=== PATIENT | male | born 1955 | race Caucasian/White ===

== ENCOUNTER 2021-01-10 10:27 | Inpatient (IN) | payer BC, MEDICARE ==
--- NOTE | 2021-01-10 11:14 | ED ---
General Adult HPI - General Chief complaint: Fever Stated complaint: Fever Time Seen by Provider: 01/10/21 10:44 Source: patient, RN/MD, RN notes reviewed Mode of arrival: ambulatory Limitations: no limitations - History of Present Illness Initial comments: Patient is a pleasant 65-year-old male presenting to the emergency Department with complaints of fever yesterday. Patient states he has not been feeling well. Patient has had some postnasal drip and cough. Patient has had some occasional productive sputum, somewhat dark. Patient did have fever of 102 yesterday. Patient was supposed to have angiogram done however they would not do it secondary to fever. No dyspnea. No abdominal pain. No dysuria. Patient recently stopped smoking 3 days ago. Patient did see his doctor today and was advised to come to emergency department for evaluation for fever. Patient has been a little bit lightheaded. - Related Data Home Medications Medication Instructions Recorded Confirmed ALPRAZolam [Xanax] 1 mg PO HS 02/11/15 01/10/21 Aspirin EC [Ecotrin Low Dose] 81 mg PO DAILY 01/10/21 01/10/21 Atorvastatin [Lipitor] 10 mg PO HS 01/10/21 01/10/21 Clopidogrel [Plavix] 75 mg PO DAILY 01/10/21 01/10/21 FLUoxetine HCL [PROzac] 20 mg PO DAILY 01/10/21 01/10/21 Ibuprofen [Motrin] 800 mg PO Q8H PRN 01/10/21 01/10/21 Multivit-Min/FA/Lycopen/Lutein 1 tab PO DAILY 01/10/21 01/10/21 [Centrum Silver Tablet] Pregabalin [Lyrica] 150 mg PO BID 01/10/21 01/10/21 Varenicline [Chantix Continuing 1 mg PO BID 01/10/21 01/10/21 Pack] oxyCODONE-APAP 10-325MG [Percocet 1 tab PO QID 01/10/21 01/10/21 10-325 mg] Allergies Allergy/AdvReac Type Severity Reaction Status Date / Time gabapentin Allergy Swelling Verified 01/10/21 11:33 Review of Systems ROS Statement: Those systems with pertinent positive or pertinent negative responses have been documented in the HPI. ROS Other: All systems not noted in ROS Statement are negative. Constitutional: Reports: as per HPI, fever Eyes: Denies: eye pain ENT: Reports: congestion. Denies: ear pain Respiratory: Reports: cough. Denies: dyspnea Cardiovascular: Denies: chest pain Endocrine: Denies: fatigue Gastrointestinal: Denies: abdominal pain Genitourinary: Denies: dysuria Musculoskeletal: Denies: back pain Skin: Denies: rash Neurological: Denies: headache, weakness, confusion, abnormal gait, vertigo Past Medical History Past Medical History: Sleep Apnea/CPAP/BIPAP Additional Past Medical History / Comment(s): NO CPAP/BIPAP. CHRONIC NECK/BACK PAIN. History of Any Multi-Drug Resistant Organisms: None Reported Past Surgical History: Appendectomy, Back Surgery, Orthopedic Surgery, Tonsillectomy Additional Past Surgical History / Comment(s): BACK: 1 CERVICAL FUSION, 3 LUMBAR. BILATERAL CARPAL TUNNEL. RIGHT ULNAR NERVE RELEASE. Past Anesthesia/Blood Transfusion Reactions: Family History of Problems w/ Anesthesia Additional Past Anesthesia/Blood Transfusion Reaction / Comment(s): SISTER PONV Past Psychological History: No Psychological Hx Reported Smoking Status: Former smoker Past Alcohol Use History: Occasional Past Drug Use History: None Reported General Exam Limitations: no limitations General appearance: alert, in no apparent distress Head exam: Present: atraumatic Eye exam: Present: normal appearance, PERRL, EOMI ENT exam: Present: normal oropharynx Neck exam: Present: normal inspection Respiratory exam: Present: wheezes Cardiovascular Exam: Present: regular rate, normal rhythm GI/Abdominal exam: Present: soft. Absent: distended, tenderness, guarding, rebound, rigid Extremities exam: Present: normal inspection. Absent: pedal edema, calf tenderness Neurological exam: Present: alert, oriented X3, CN II-XII intact. Absent: motor sensory deficit Psychiatric exam: Present: normal affect, normal mood Skin exam: Present: normal color Course Vital Signs 01/10/21 01/10/21 10:28 12:38 Temperature 97.6 F Pulse Rate 82 72 Respiratory 18 18 Rate Blood Pressure 160/74 112/63 O2 Sat by Pulse 95 94 L Oximetry EKG Findings - EKG Comments: EKG Findings:: No sinus rhythm with rate of 71. NV 168. QRS 126. QT 418. QTC 454. Normal axis. Nonspecific interventricular block. No acute ST change. Medical Decision Making - Medical Decision Making Patient reevaluated and updated. Case was again discussed with practitioner Salty, covering Dr. العلي, who will admit. - Lab Data Result diagrams: 01/10/21 11:17 01/10/21 11:17 Lab Results 01/10/21 01/10/21 01/10/21 Range/Units 11:17 11:17 11:17 WBC 12.9 H (3.8-10.6) k/uL RBC 3.88 L (4.30-5.90) m/uL Hgb 12.0 L (13.0-17.5) gm/dL Hct 35.3 L (39.0-53.0) % MCV 90.9 (80.0-100.0) fL MCH 30.8 (25.0-35.0) pg MCHC 33.9 (31.0-37.0) g/dL RDW 12.4 (11.5-15.5) % Plt Count 360 (150-450) k/uL MPV 7.5 Neutrophils % 74 % Lymphocytes % 14 % Monocytes % 6 % Eosinophils % 3 % Basophils % 0 % Neutrophils # 9.6 H (1.3-7.7) k/uL Lymphocytes # 1.8 (1.0-4.8) k/uL Monocytes # 0.8 (0-1.0) k/uL Eosinophils # 0.4 (0-0.7) k/uL Basophils # 0.1 (0-0.2) k/uL PT 11.0 (9.0-12.0) sec INR 1.0 (<1.2) APTT 27.5 (22.0-30.0) sec Sodium (137-145) mmol/L Potassium (3.5-5.1) mmol/L Chloride (98-107) mmol/L Carbon Dioxide (22-30) mmol/L Anion Gap mmol/L BUN (9-20) mg/dL Creatinine (0.66-1.25) mg/dL Est GFR (CKD-EPI)AfAm (>60 ml/min/1.73 sqM) Est GFR (CKD-EPI)NonAf (>60 ml/min/1.73 sqM) Glucose (74-99) mg/dL Plasma Lactic Acid Caleb (0.7-2.0) mmol/L Calcium (8.4-10.2) mg/dL Total Bilirubin (0.2-1.3) mg/dL AST (17-59) U/L ALT (4-49) U/L Alkaline Phosphatase (38-126) U/L Total Protein (6.3-8.2) g/dL Albumin (3.5-5.0) g/dL Urine Color Yellow Urine Appearance Clear (Clear) Urine pH 5.5 (5.0-8.0) Ur Specific [place] 1.036 H (1.001-1.035) Urine Protein 1+ H (Negative) Urine Glucose (UA) Negative (Negative) Urine Ketones Negative (Negative) Urine Blood Negative (Negative) Urine Nitrite Negative (Negative) Urine Bilirubin Negative (Negative) Urine Urobilinogen 2.0 (<2.0) mg/dL Ur Leukocyte Esterase Negative (Negative) Urine RBC 4 (0-5) /hpf Urine WBC 1 (0-5) /hpf Ur Squamous Epith Cells <1 (0-4) /hpf Hyaline Casts 37 H (0-2) /lpf Urine Mucus Occasional H (None) /hpf Coronavirus (PCR) (Not Detectd) Influenza Type A RNA (Not Detectd) Influenza Type B (PCR) (Not Detectd) 01/10/21 01/10/21 01/10/21 Range/Units 11:17 11:17 11:17 WBC (3.8-10.6) k/uL RBC (4.30-5.90) m/uL Hgb (13.0-17.5) gm/dL Hct (39.0-53.0) % MCV (80.0-100.0) fL MCH (25.0-35.0) pg MCHC (31.0-37.0) g/dL RDW (11.5-15.5) % Plt Count (150-450) k/uL MPV Neutrophils % % Lymphocytes % % Monocytes % % Eosinophils % % Basophils % % Neutrophils # (1.3-7.7) k/uL Lymphocytes # (1.0-4.8) k/uL Monocytes # (0-1.0) k/uL Eosinophils # (0-0.7) k/uL Basophils # (0-0.2) k/uL PT (9.0-12.0) sec INR (<1.2) APTT (22.0-30.0) sec Sodium 139 (137-145) mmol/L Potassium 3.9 (3.5-5.1) mmol/L Chloride 104 (98-107) mmol/L Carbon Dioxide 24 (22-30) mmol/L Anion Gap 11 mmol/L BUN 27 H (9-20) mg/dL Creatinine 0.90 (0.66-1.25) mg/dL Est GFR (CKD-EPI)AfAm >90 (>60 ml/min/1.73 sqM) Est GFR (CKD-EPI)NonAf 90 (>60 ml/min/1.73 sqM) Glucose 103 H (74-99) mg/dL Plasma Lactic Acid Caleb 1.0 (0.7-2.0) mmol/L Calcium 8.9 (8.4-10.2) mg/dL Total Bilirubin 0.4 (0.2-1.3) mg/dL AST 37 (17-59) U/L ALT 41 (4-49) U/L Alkaline Phosphatase 115 (38-126) U/L Total Protein 6.0 L (6.3-8.2) g/dL Albumin 3.0 L (3.5-5.0) g/dL Urine Color Urine Appearance (Clear) Urine pH (5.0-8.0) Ur Specific [place] (1.001-1.035) Urine Protein (Negative) Urine Glucose (UA) (Negative) Urine Ketones (Negative) Urine Blood (Negative) Urine Nitrite (Negative) Urine Bilirubin (Negative) Urine Urobilinogen (<2.0) mg/dL Ur Leukocyte Esterase (Negative) Urine RBC (0-5) /hpf Urine WBC (0-5) /hpf Ur Squamous Epith Cells (0-4) /hpf Hyaline Casts (0-2) /lpf Urine Mucus (None) /hpf Coronavirus (PCR) (Not Detectd) Influenza Type A RNA Not Detected (Not Detectd) Influenza Type B (PCR) Not Detected (Not Detectd) 01/10/21 Range/Units 11:17 WBC (3.8-10.6) k/uL RBC (4.30-5.90) m/uL Hgb (13.0-17.5) gm/dL Hct (39.0-53.0) % MCV (80.0-100.0) fL MCH (25.0-35.0) pg MCHC (31.0-37.0) g/dL RDW (11.5-15.5) % Plt Count (150-450) k/uL MPV Neutrophils % % Lymphocytes % % Monocytes % % Eosinophils % % Basophils % % Neutrophils # (1.3-7.7) k/uL Lymphocytes # (1.0-4.8) k/uL Monocytes # (0-1.0) k/uL Eosinophils # (0-0.7) k/uL Basophils # (0-0.2) k/uL PT (9.0-12.0) sec INR (<1.2) APTT (22.0-30.0) sec Sodium (137-145) mmol/L Potassium (3.5-5.1) mmol/L Chloride (98-107) mmol/L Carbon Dioxide (22-30) mmol/L Anion Gap mmol/L BUN (9-20) mg/dL Creatinine (0.66-1.25) mg/dL Est GFR (CKD-EPI)AfAm (>60 ml/min/1.73 sqM) Est GFR (CKD-EPI)NonAf (>60 ml/min/1.73 sqM) Glucose (74-99) mg/dL Plasma Lactic Acid Caleb (0.7-2.0) mmol/L Calcium (8.4-10.2) mg/dL Total Bilirubin (0.2-1.3) mg/dL AST (17-59) U/L ALT (4-49) U/L Alkaline Phosphatase (38-126) U/L Total Protein (6.3-8.2) g/dL Albumin (3.5-5.0) g/dL Urine Color Urine Appearance (Clear) Urine pH (5.0-8.0) Ur Specific [place] (1.001-1.035) Urine Protein (Negative) Urine Glucose (UA) (Negative) Urine Ketones (Negative) Urine Blood (Negative) Urine Nitrite (Negative) Urine Bilirubin (Negative) Urine Urobilinogen (<2.0) mg/dL Ur Leukocyte Esterase (Negative) Urine RBC (0-5) /hpf Urine WBC (0-5) /hpf Ur Squamous Epith Cells (0-4) /hpf Hyaline Casts (0-2) /lpf Urine Mucus (None) /hpf Coronavirus (PCR) Not Detected (Not Detectd) Influenza Type A RNA (Not Detectd) Influenza Type B (PCR) (Not Detectd) - Radiology Data Radiology results: image reviewed (Left lower lobe infiltrate) Disposition Clinical Impression: Pneumonia Disposition: ADMITTED IP TO THIS HOSP Is patient prescribed a controlled substance at d/c from ED?: No Referrals: Raghavendra العلي MD [Primary Care Provider] - 1-2 days Decision Time: 13:23
[2021-01-10 12:03] LABS: Basophils # (A) 0.1 k/uL (0-0.2); Basophils % (A) 0 %; Eosinophils # (A) 0.4 k/uL (0-0.7); Eosinophils % (A) 3 %; HCT 35.3 % (39.0-53.0); Lymphocytes # (A) 1.8 k/uL (1.0-4.8); Lymphocytes % (A) 14 %; MCH 30.8 pg (25.0-35.0); MCHC 33.9 g/dL (31.0-37.0); MCV 90.9 fL (80.0-100.0); Mean Platelet Volume 7.5; Monocytes # (A) 0.8 k/uL (0-1.0); Monocytes % (A) 6 %; Neutrophils # (A) 9.6 k/uL (1.3-7.7); Neutrophils % (A) 74 %; Platelet Count 360 k/uL (150-450); RBC 3.88 m/uL (4.30-5.90); RDW 12.4 % (11.5-15.5); WBC 12.9 k/uL (3.8-10.6)
[2021-01-10 12:11] LABS: Appearance,Urine Clear (Clear); Bilirubin,Urine Negative (Negative); Blood,Urine Negative (Negative); Color,Urine Yellow; Glucose,Urine (UA) Negative (Negative); Hyaline Casts,Urine 37 /lpf (0-2); Ketones,Urine Negative (Negative); Leukocyte Esterase,Urine Negative (Negative); Mucus,Urine Occasional /hpf; Nitrite,Urine Negative (Negative); PH, Urine 5.5 (5.0-8.0); Protein,Urine 1+ (Negative); RBC,Urine 4 /hpf (0-5); Specific Gravity,Urine 1.036 (1.001-1.035); Squamous Epithelial Cell,Urine <1 /hpf (0-4); WBC,Urine 1 /hpf (0-5)
[2021-01-10 12:14] LABS: Partial Thromboplastin Time 27.5 sec (22.0-30.0)
--- NOTE | 2021-01-10 12:27 | XR ---
EXAMINATION TYPE: XR chest 2V DATE OF EXAM: 01/10/2021 COMPARISON: 05/15/2013 HISTORY: fever TECHNIQUE: Frontal and lateral views of the chest are obtained. FINDINGS: There is new left basilar airspace disease, concerning for pneumonia. Cardiac silhouette is unremarkable. IMPRESSION: There is new left basilar airspace disease, concerning for pneumonia. Repeat radiograph is recommend ed 6-8 weeks after resolution of patient's clinical symptoms to ensure radiologic clearance.
[2021-01-10] MEDS ORDERED: IBUPROFEN 800 MG TAB PO STA (12:43)
[2021-01-10] MEDS ORDERED: oxyCODONE-APAP 10-325MG 1 EACH TAB PO STA (12:44)
[2021-01-10 12:47] LABS: ALT 41 U/L (4-49); AST 37 U/L (17-59); African American GFR (CKD) >90 (>60 ml/min/1.73 sqM); Alkaline Phosphatase 115 U/L (38-126); Anion Gap 11 mmol/L; Blood Urea Nitrogen 27 mg/dL (9-20); Calcium 8.9 mg/dL (8.4-10.2); Carbon Dioxide 24 mmol/L (22-30); Chloride 104 mmol/L (98-107); Glucose 103 mg/dL (74-99); Non-African American GFR(CKD) 90 (>60 ml/min/1.73 sqM); Potassium 3.9 mmol/L (3.5-5.1); Sodium 139 mmol/L (137-145); Total Bilirubin 0.4 mg/dL (0.2-1.3)
[2021-01-10] MEDS ORDERED: AZITHROMYCIN 500 MG in SODIUM CHLORIDE 0.9% 250 ML IVPB STA (13:23)
[2021-01-10] MEDS ORDERED: PNEUMONIA PROTOCOL UTILIZED 1 EACH MISC PO PRN (13:23)
[2021-01-10] MEDS: ALBUTEROL HFA INHALER INHALATION SCH (19:16)
[2021-01-10] MEDS: oxyCODONE-APAP 10-325MG 1 EACH TAB PO SCH (21:12)
[2021-01-10] MEDS: ATORVASTATIN 10 MG TAB PO SCH (21:14)
[2021-01-10] MEDS: PREGABALIN 75 MG CAP PO SCH (21:14)
[2021-01-10] MEDS: LACTATED RINGERS 1,000 ML IV SCH (21:14)
[2021-01-10] MEDS: ALPRAZolam 1 MG TAB PO SCH (22:49)
[2021-01-11] MEDS: oxyCODONE-APAP 10-325MG 1 EACH TAB PO SCH ×5 (02:14→22:13)
[2021-01-11] MEDS ORDERED: KETOROLAC 30 MG/ML 1 ML VIAL IVP ONE (03:15)
[2021-01-11] MEDS ORDERED: VANCOMYCIN IV PER PHARMACY 1 EACH MISC MISCELLANE PRN (03:16)
[2021-01-11] MEDS ORDERED: VANCOMYCIN 1,750 MG in SODIUM CHLORIDE 0.9% 500 ML 500 ML IVPB ONE (03:30)
[2021-01-11] MEDS ORDERED: KETOROLAC 15 MG/ML 1 ML VIAL IVP ONE (03:30)
[2021-01-11] MEDS: PIPERACILLIN-TAZOBACTAM 3.375 GM in SODIUM CHLORIDE 0.9% 100 ML IVPB SCH ×3 (04:19→20:04)
[2021-01-11 04:54] LABS: Basophils # (A) 0.1 k/uL (0-0.2); Basophils % (A) 1 %; Eosinophils # (A) 0.3 k/uL (0-0.7); Eosinophils % (A) 3 %; HCT 35.9 % (39.0-53.0); HGB 12.2 gm/dL (13.0-17.5); Lymphocytes # (A) 1.8 k/uL (1.0-4.8); Lymphocytes % (A) 14 %; MCH 31.4 pg (25.0-35.0); MCV 92.3 fL (80.0-100.0); Mean Platelet Volume 7.6; Monocytes # (A) 0.8 k/uL (0-1.0); Monocytes % (A) 6 %; Neutrophils # (A) 9.2 k/uL (1.3-7.7); Neutrophils % (A) 74 %; Platelet Count 372 k/uL (150-450); RBC 3.89 m/uL (4.30-5.90); RDW 12.5 % (11.5-15.5); WBC 12.5 k/uL (3.8-10.6)
[2021-01-11 05:01] LABS: ALT 35 U/L (4-49); AST 32 U/L (17-59); African American GFR (CKD) >90 (>60 ml/min/1.73 sqM); Albumin 2.8 g/dL (3.5-5.0); Alkaline Phosphatase 106 U/L (38-126); Anion Gap 8 mmol/L; Blood Urea Nitrogen 19 mg/dL (9-20); Calcium 8.4 mg/dL (8.4-10.2); Carbon Dioxide 25 mmol/L (22-30); Chloride 102 mmol/L (98-107); Globulin 2.9 g/dL; Glucose 105 mg/dL (74-99); Non-African American GFR(CKD) >90 (>60 ml/min/1.73 sqM); Potassium 4.2 mmol/L (3.5-5.1); Sodium 135 mmol/L (137-145); Total Bilirubin 0.2 mg/dL (0.2-1.3); Total Protein 5.7 g/dL (6.3-8.2)
[2021-01-11] MEDS: ALBUTEROL HFA INHALER INHALATION SCH ×4 (07:33→20:25)
[2021-01-11] MEDS: PREGABALIN 75 MG CAP PO SCH ×2 (08:06→20:05)
[2021-01-11] MEDS: FLUoxetine HCL 20 MG CAP PO SCH (08:07)
[2021-01-11] MEDS: MULTIVITAMINS, THERA 1 EACH TAB PO SCH (08:07)
[2021-01-11] MEDS: CLOPIDOGREL 75 MG TAB PO SCH (08:07)
[2021-01-11] MEDS: ASPIRIN 81 MG PO SCH (08:07)
--- NOTE | 2021-01-11 08:56 | XR ---
EXAMINATION TYPE: XR chest 2V DATE OF EXAM: 01/11/2021 COMPARISON: Chest x-ray from yesterday HISTORY: Pneumonia. TECHNIQUE: Frontal and lateral views of the chest are obtained. FINDINGS: There is persistent left basilar opacity greatest in the lower lobe on 2 views. Is less we ll seen on lateral view. Persistent silhouetting of left hemidiaphragm and inferior portion left hear t border. There is developing right basilar opacity medially on frontal view. Upper lungs remain nik r. The cardiac silhouette size is stable and within normal limits with atherosclerotic change aortic knob. Anterior fusion plate cervicothoracic junction partially imaged. IMPRESSION: Persistent left lower lobe pneumonic consolidation. Developing right medial basilar acut e infiltrate and/or atelectasis.
[2021-01-11] MEDS: VANCOMYCIN 1,750 MG in SODIUM CHLORIDE 0.9% 500 ML 500 ML IVPB SCH ×2 (12:11→20:04)
[2021-01-11 13:02] VITALS: BMI 30.7
[2021-01-11] MEDS: LACTATED RINGERS 1,000 ML IV SCH ×2 (15:04→22:03)
--- NOTE | 2021-01-11 19:35 | CONS ---
DATE OF CONSULTATION: 01/11/2021 This is a 65-year-old gentleman who has been admitted to [facility] with history of fever, shortness of breath and cough. The patient had a workup. The patient has pneumonia and patient has been on IV antibiotic and under the care of Infectious Disease. MEDICAL HISTORY: The patient's medical history includes history of sleep apnea and patient is CPAP/BiPAP. SURGICAL HISTORY: Patient had appendectomy, back surgery and the patient had a fem-fem crossover bypass done at [facility]. The patient was supposed to have an angiogram at [facility] and patient was told when his fever is controlled, they will proceed for the angiography. PHYSICAL EXAMINATION: Patient was seen in his room. NECK: Supple. Trachea central. Chest has crackles bilateral. ABDOMEN: Soft, nontender. The patient has incision scar on both groins. Femorals are 1+ bilateral. PT DP not palpable. No ischemic changes. The patient has no acute vascular issue at this point. When patient is afebrile and treated the lung infection, then patient can go to [facility] for further workup. MMODL / IJN: [id number] / TANGELA
[2021-01-11] MEDS: ATORVASTATIN 10 MG TAB PO SCH (20:05)
[2021-01-11] MEDS: ALPRAZolam 1 MG TAB PO SCH (20:05)
--- NOTE | 2021-01-11 21:54 | CT ---
EXAMINATION TYPE: CT angio chest DATE OF EXAM: 01/11/2021 COMPARISON: Chest x-ray 01/11/2021 HISTORY: chest pain, SOB CT DLP: 526.3 mGycm Automated exposure control for dose reduction was used. CONTRAST: CTA scan of the thorax is performed with IV Contrast, patient injected with 100 mL of Isovue 370, pul monary embolism protocol. MIP images are created and reviewed. 3D reconstructed images are created on an independent workstation and reviewed. FINDINGS: LUNGS: The lungs are remarkable for air bronchograms, nonaerated lung in the left lower lobe with ass ociated effusion. Interstitial changes are present within the lungs, there is evidence of old granulo matous disease. Patchy basilar atelectasis present in the right lung base. There is paraseptal emphys ematous change, centrilobular emphysema. AORTA: No additional significant abnormality is seen. MEDIASTINUM: There is less than optimal enhancement of the pulmonary artery and its branches, there i s no CT evidence for pulmonary embolism. There is mediastinal adenopathy present, there are prevascu lar nodes, left hilar adenopathy is present OTHER: There are changes of gynecomastia. Calcified granuloma present within the spleen and liver, l ow-attenuation within the liver may be due to hepatic steatosis IMPRESSION: CORRELATE FOR LEFT LOWER LOBE PNEUMONIA AND PARAPNEUMONIC EFFUSION. EMPHYSEMA, INTERSTITIAL LUNG DISE ASE, THERE IS UNDERLYING OLD GRANULOMATOUS DISEASE. NO EVIDENT PULMONARY EMBOLISM.
[2021-01-11] MEDS ORDERED: KETOROLAC 15 MG/ML 1 ML VIAL IVP STA ×2 (22:12→23:01)
--- NOTE | 2021-01-11 22:46 | P.HPIM ---
History of Present Illness H&P Date: 01/11/21 Chief Complaint: Shortness of breath/fever 65-year-old male was admitted to the hospital for pneumonia with associated intermittent fevers. Patient has significant medical history of Hyperlipidemia, peripheral vascular/peripheral artery disease, chronic back pain with associated cervical fusions,lumbar effusions, bilateral carpal tunnel, right ulnar nerve release, sleep apnea/CPAP BiPAP,and nicotine dependence.Emergency diagnostic workup showed pneumonia, and leukocytosis. Patient has also significant history of MRSA. For pneumonia patient was initially started on 2 g ceftriaxone IV piggyback, and Zithromax 500 mg IV piggyback Q 24 hours. With significant history of and Aragon fecal myosin pharmacy dose, and Zosyn 3.375 g IV piggyback to cover Pseudomonas. Review of Systems Constitutional: Reports chills, Reports fever, Reports weakness Cardiovascular: Reports decreased exercise tolerance, Reports dyspnea on exertion, Reports shortness of breath Respiratory: Reports dyspnea, Reports respiratory infections Musculoskeletal: Reports as per HPI, Reports muscle weakness Neurological: Reports weakness Endocrine: Reports fatigue Past Medical History Past Medical History: Sleep Apnea/CPAP/BIPAP Additional Past Medical History / Comment(s): NO CPAP/BIPAP. CHRONIC NECK/BACK PAIN. History of Any Multi-Drug Resistant Organisms: None Reported Past Surgical History: Appendectomy, Back Surgery, Orthopedic Surgery, Tonsillectomy Additional Past Surgical History / Comment(s): BACK: 1 CERVICAL FUSION, 3 LUMBAR. BILATERAL CARPAL TUNNEL. RIGHT ULNAR NERVE RELEASE. Past Anesthesia/Blood Transfusion Reactions: Family History of Problems w/ Anesthesia Additional Past Anesthesia/Blood Transfusion Reaction / Comment(s): SISTER PONV Past Psychological History: No Psychological Hx Reported Smoking Status: Current some day smoker Past Alcohol Use History: Occasional Past Drug Use History: Cocaine Additional Drug Use History / Comment(s): states did cocaine 30-40 years ago Medications and Allergies Home Medications and Allergies Comment(s): Medication allergies reviewed Home Medications Medication Instructions Recorded Confirmed Type ALPRAZolam [Xanax] 1 mg PO HS 02/11/15 01/10/21 History Aspirin EC [Ecotrin Low Dose] 81 mg PO DAILY 01/10/21 01/10/21 History Atorvastatin [Lipitor] 10 mg PO HS 01/10/21 01/10/21 History Clopidogrel [Plavix] 75 mg PO DAILY 01/10/21 01/10/21 History FLUoxetine HCL [PROzac] 20 mg PO DAILY 01/10/21 01/10/21 History Ibuprofen [Motrin] 800 mg PO Q8H PRN 01/10/21 01/10/21 History Multivit-Min/FA/Lycopen/Lutein 1 tab PO DAILY 01/10/21 01/10/21 History [Centrum Silver Tablet] Pregabalin [Lyrica] 150 mg PO BID 01/10/21 01/10/21 History Varenicline [Chantix Continuing 1 mg PO BID 01/10/21 01/10/21 History Pack] oxyCODONE-APAP 10-325MG [Percocet 1 tab PO QID 01/10/21 01/10/21 History 10-325 mg] Allergies Allergy/AdvReac Type Severity Reaction Status Date / Time gabapentin Allergy Swelling Verified 01/10/21 11:33 Physical Exam Vitals: Vital Signs Temp Pulse Resp BP BP Pulse Ox 01/11/21 21:12 92 L 01/11/21 18:00 98.5 F 01/11/21 15:25 84 145/77 01/11/21 15:24 83 135/72 01/11/21 14:51 97.7 F 81 18 140/62 93 L 01/11/21 07:00 97.6 F 81 20 128/53 93 L 01/11/21 01:51 101.5 F H 111 H 16 158/72 93 L Intake and Output 01/11/21 01/11/21 01/11/21 06:59 14:59 22:59 Other: Voiding Method Toilet Toilet # Voids 0 3 Weight 105.687 kg - Constitutional General appearance: mild distress - EENT Eyes: EOMI, PERRLA, normal appearance ENT: normal oropharynx Ears: bilateral: normal - Neck Neck: normal ROM Carotids: bilateral: upstroke normal Thyroid: bilateral: normal size - Respiratory Respiratory: bilateral: diminished (Anterior and posterior lung conrad) - Cardiovascular Sinus tachycardia Heart rate: 101 Rhythm: regular Heart sounds: normal: S1, S2 radial pulse Peripheral Pulses: bilateral: Normal dorsalis pedis Peripheral Pulses: bilateral: Normal - Gastrointestinal General gastrointestinal: normal bowel sounds - Integumentary Integumentary: normal turgor - Neurologic Neurologic: CNII-XII intact - Musculoskeletal Musculoskeletal: generalized weakness - Psychiatric Psychiatric: A&O x's 3, appropriate affect Results CBC & Chem 7: 01/11/21 04:26 01/11/21 04:26 Labs: Abnormal Lab Results - Last 24 Hours (Table) 01/10/21 01/11/21 01/11/21 Range/Units 11:17 04:26 04:26 WBC 12.5 H (3.8-10.6) k/uL RBC 3.89 L (4.30-5.90) m/uL Hgb 12.2 L (13.0-17.5) gm/dL Hct 35.9 L (39.0-53.0) % Neutrophils # 9.2 H (1.3-7.7) k/uL Sodium 135 L (137-145) mmol/L Glucose 105 H (74-99) mg/dL Total Protein 5.7 L (6.3-8.2) g/dL Albumin 2.8 L (3.5-5.0) g/dL Procalcitonin 0.16 H (0.02-0.09) ng/mL Microbiology - Last 24 Hours (Table) 01/10/21 11:17 Blood Culture - Preliminary Blood No Growth after 24 hours 01/10/21 11:17 Blood Culture - Preliminary Blood No Growth after 24 hours Chest x-ray: report reviewed Thrombosis Risk Factor Assmnt - Choose All That Apply Each Risk Factor Represents 2 Points: Age 61-74 years Thrombosis Risk Factor Assessment Total Risk Factor Score: 2 Thrombosis Risk Factor Assessment Level: Low Risk Assessment and Plan Assessment: Pneumonia, continue Zosyn 3.375 g IV piggyback, continue vancomycin per pharmacy dose leukocytosis continue to trend peripheral artery disease chronic back pain with multiple fusions mixed anxiety and depression hyperlipidemia full code Plan: Pneumonia continue IV antibiotics leukocytosis continue to trend chronic back pain continue analgesics as needed fever continue antipyretic's continue medical management continue to monitor vital signs and diagnostic testing further recommendations to come based on patient's clinical condition Time with Patient: Greater than 30
[2021-01-11 23:07] LABS: African American GFR (CKD) >90 (>60 ml/min/1.73 sqM); Anion Gap 8 mmol/L; Blood Urea Nitrogen 19 mg/dL (9-20); Calcium 8.3 mg/dL (8.4-10.2); Carbon Dioxide 25 mmol/L (22-30); Chloride 102 mmol/L (98-107); Glucose 128 mg/dL (74-99); Non-African American GFR(CKD) >90 (>60 ml/min/1.73 sqM); Potassium 4.3 mmol/L (3.5-5.1); Sodium 135 mmol/L (137-145)
[2021-01-11] MEDS: METOPROLOL TARTRATE 12.5 MG TAB PO SCH (23:13)
[2021-01-11] MEDS: LOSARTAN 50 MG TAB PO SCH (23:13)
[2021-01-12] MEDS: VANCOMYCIN 1,750 MG in SODIUM CHLORIDE 0.9% 500 ML 500 ML IVPB SCH (03:18)
[2021-01-12] MEDS: PIPERACILLIN-TAZOBACTAM 3.375 GM in SODIUM CHLORIDE 0.9% 100 ML IVPB SCH ×3 (03:18→20:13)
[2021-01-12] MEDS: oxyCODONE-APAP 10-325MG 1 EACH TAB PO SCH ×4 (06:09→20:28)
[2021-01-12 06:10] LABS: Basophils # (A) 0.1 k/uL (0-0.2); Basophils % (A) 0 %; Eosinophils # (A) 0.2 k/uL (0-0.7); Eosinophils % (A) 1 %; HCT 35.4 % (39.0-53.0); Lymphocytes # (A) 1.7 k/uL (1.0-4.8); Lymphocytes % (A) 11 %; MCH 31.1 pg (25.0-35.0); MCV 91.4 fL (80.0-100.0); Mean Platelet Volume 7.9; Monocytes # (A) 1.2 k/uL (0-1.0); Monocytes % (A) 8 %; Neutrophils # (A) 11.9 k/uL (1.3-7.7); Neutrophils % (A) 77 %; Platelet Count 254 k/uL (150-450); RBC 3.87 m/uL (4.30-5.90); RDW 12.6 % (11.5-15.5); WBC 15.4 k/uL (3.8-10.6)
[2021-01-12 06:27] LABS: ALT 29 U/L (4-49); African American GFR (CKD) >90 (>60 ml/min/1.73 sqM); Albumin 2.6 g/dL (3.5-5.0); Albumin/Globulin Ratio 0.9; Anion Gap 8 mmol/L; Blood Urea Nitrogen 18 mg/dL (9-20); Calcium 8.2 mg/dL (8.4-10.2); Carbon Dioxide 22 mmol/L (22-30); Chloride 110 mmol/L (98-107); Globulin 2.8 g/dL; Glucose 116 mg/dL (74-99); Non-African American GFR(CKD) >90 (>60 ml/min/1.73 sqM); Sodium 140 mmol/L (137-145); Total Bilirubin 0.4 mg/dL (0.2-1.3); Total Protein 5.4 g/dL (6.3-8.2)
[2021-01-12 06:31] LABS: Potassium 5.4 mmol/L (3.5-5.1)
[2021-01-12 06:32] LABS: AST 34 U/L (17-59); Alkaline Phosphatase 77 U/L (38-126); Magnesium 2.3 mg/dL (1.6-2.3)
[2021-01-12] MEDS ORDERED: IPRATROPIUM-ALBUTEROL 3 ML NEB INHALATION PRN (07:20)
[2021-01-12] MEDS: IPRATROPIUM-ALBUTEROL 3 ML NEB INHALATION SCH ×4 (08:37→19:58)
[2021-01-12 08:46] LABS: African American GFR (CKD) >90 (>60 ml/min/1.73 sqM); Anion Gap 8 mmol/L; Blood Urea Nitrogen 16 mg/dL (9-20); Calcium 8.5 mg/dL (8.4-10.2); Carbon Dioxide 23 mmol/L (22-30); Chloride 107 mmol/L (98-107); Glucose 107 mg/dL (74-99); Non-African American GFR(CKD) >90 (>60 ml/min/1.73 sqM); Potassium 4.9 mmol/L (3.5-5.1); Sodium 138 mmol/L (137-145)
[2021-01-12] MEDS ORDERED: AZITHROMYCIN 500 MG TAB PO SCH (09:00)
[2021-01-12] MEDS: ASPIRIN 81 MG PO SCH (10:35)
[2021-01-12] MEDS: PREGABALIN 75 MG CAP PO SCH ×2 (10:35→20:28)
[2021-01-12] MEDS: MULTIVITAMINS, THERA 1 EACH TAB PO SCH (10:36)
[2021-01-12] MEDS: FLUoxetine HCL 20 MG CAP PO SCH (10:36)
[2021-01-12] MEDS: CLOPIDOGREL 75 MG TAB PO SCH (10:36)
[2021-01-12] MEDS: LOSARTAN 50 MG TAB PO SCH (10:36)
--- NOTE | 2021-01-12 10:55 | P.CNPUL ---
History of Present Illness Consult date: 01/12/21 Reason for consult: dyspnea, hypoxemia History of present illness: 65-year-old male patient, coming in for a left lower lobe pneumonia. The yonas ent has severe peripheral vascular disease. He was seen by vascular surgeon he was supposed to undergo vascular intervention and he was found to be febrile and he was discharged to be followed up by his primary care physician. Obviously there was a concern for fever and infection and he was discharged home. The patient did not notice that he was having fever. Upon further check, he had a temperature of 102 and he came into the emergency department and the chest x-ray was done that showed a left lower lobe consolidation. CAT scan of the chest was also done and this confirmed the presence of an extensive left lower lobe consolidation along with a small left-sided pleural effusion. There was also some reactive lymphadenopathy in the subcarinal area. There was a calcified granuloma in the left upper lobe also. No evidence of any pulmonary embolism. The patient was started on a combination of antibiotics including Zosyn and vancomycin. Legionella urine antigen was negative. He was placed on oxygen and currently is on 2 L of oxygen by nasal cannula with a pulse ox of 94%. Earlier he was on 5 L. Currently is afebrile. Blood culture has been sent and the results are still pending for now. He has a congested cough. He did have some hemoptysis 2 days back. No pleurisy. No history of any DVT or pulmonary embolism. White cell count is at 15.4. Smoke up to 2 packs of cigarettes a day and currently he states that he's quit smoking approximately a week ago. No oxygen. No maintenance as for medications. Review of Systems Constitutional: Reports chills, Reports fatigue, Reports fever Eyes: denies as per HPI, denies blurred vision, denies bulging eye, denies decreased vision, denies diplopia, denies discharge, denies dry eye, denies irritation, denies itching, denies pain, denies photophobia, denies loss of peripheral vision, denies loss of vision, denies tunnel vision/blind spots Ears: deny: decreased hearing, ear discharge, earache, tinnitus Ears, nose, mouth and throat: Reports as per HPI Breasts: absent: as per HPI, gynecomastia Cardiovascular: Reports decreased exercise tolerance, Reports dyspnea on exertion Respiratory: Reports as per HPI, Reports dyspnea, Reports sleep apnea, Reports snoring, Reports wheezing Gastrointestinal: Reports as per HPI Genitourinary: Reports as per HPI Musculoskeletal: Reports as per HPI Musculoskeletal: absent: ankle pain, ankle stiffness, ankle swelling, as per HPI, elbow pain, elbow stiffness, elbow swelling, foot pain, foot stiffness, foot swelling, hand pain, hand stiffness, hand swelling, hip pain, hip stiffness, hip swelling, knee pain, knee stiffness, knee swelling, shoulder pain, shoulder stiffness, shoulder swelling, wrist pain, wrist stiffness, wrist swelling Integumentary: Reports as per HPI Neurological: Reports as per HPI Psychiatric: Reports as per HPI Endocrine: Reports as per HPI Hematologic/Lymphatic: Reports as per HPI Allergic/Immunologic: Reports as per HPI Past Medical History Past Medical History: Hyperlipidemia, Sleep Apnea/CPAP/BIPAP (ON CPAP therapy, PVOD ), Vascular Disorder Additional Past Medical History / Comment(s): CHRONIC NECK/BACK PAIN. History of Any Multi-Drug Resistant Organisms: None Reported Past Surgical History: Appendectomy, Back Surgery, Orthopedic Surgery, Tonsillectomy Additional Past Surgical History / Comment(s): BACK: 1 CERVICAL FUSION, 3 LUMBAR. BILATERAL CARPAL TUNNEL. RIGHT ULNAR NERVE RELEASE. Past Anesthesia/Blood Transfusion Reactions: Family History of Problems w/ Anesthesia Additional Past Anesthesia/Blood Transfusion Reaction / Comment(s): SISTER PONV Past Psychological History: No Psychological Hx Reported Smoking Status: Current some day smoker Past Alcohol Use History: Occasional Past Drug Use History: Cocaine Additional Drug Use History / Comment(s): states did cocaine 30-40 years ago Medications and Allergies Home Medications Medication Instructions Recorded Confirmed Type ALPRAZolam [Xanax] 1 mg PO HS 02/11/15 01/10/21 History Aspirin EC [Ecotrin Low Dose] 81 mg PO DAILY 01/10/21 01/10/21 History Atorvastatin [Lipitor] 10 mg PO HS 01/10/21 01/10/21 History Clopidogrel [Plavix] 75 mg PO DAILY 01/10/21 01/10/21 History FLUoxetine HCL [PROzac] 20 mg PO DAILY 01/10/21 01/10/21 History Ibuprofen [Motrin] 800 mg PO Q8H PRN 01/10/21 01/10/21 History Multivit-Min/FA/Lycopen/Lutein 1 tab PO DAILY 01/10/21 01/10/21 History [Centrum Silver Tablet] Pregabalin [Lyrica] 150 mg PO BID 01/10/21 01/10/21 History Varenicline [Chantix Continuing 1 mg PO BID 01/10/21 01/10/21 History Pack] oxyCODONE-APAP 10-325MG [Percocet 1 tab PO QID 01/10/21 01/10/21 History 10-325 mg] Allergies Allergy/AdvReac Type Severity Reaction Status Date / Time gabapentin Allergy Swelling Verified 01/10/21 11:33 Physical Exam Vitals: Vital Signs Temp Pulse Pulse Resp BP Pulse Ox 01/12/21 08:46 86 01/12/21 08:37 82 01/12/21 03:33 98.6 F 76 17 109/76 94 L 01/11/21 23:05 102.4 F H 110 H 19 152/68 95 01/11/21 21:12 92 L 01/11/21 19:42 102.2 F H 118 H 22 184/55 94 L 01/11/21 18:00 98.5 F 01/11/21 15:25 84 145/77 01/11/21 15:24 83 135/72 01/11/21 14:51 97.7 F 81 18 140/62 93 L Intake and Output 01/11/21 01/12/21 01/12/21 22:59 06:59 14:59 Intake Total 240 Balance 240 Intake: Oral 240 Other: Voiding Method Toilet # Voids 2 The patient appeared well nourished and normally developed. Vital signs as documented. Head exam is unremarkable. No scleral icterus or corneal arcus noted. Neck is without jugular venous distension, thyromegaly, or carotid bruits. Carotid upstrokes are brisk bilaterally. Lungs are diminished bilaterally along with crackles in the lung bases more so on the left. Cardiac exam reveals the PMI to be normally sized and situated. Rhythm is regular. First and second heart sounds normal. No murmurs, rubs or gallops. Abdominal exam reveals normal bowel sounds, no masses, no organomegaly and no aortic enlargement. Extremities are nonedematous and both femoral and pedal pulses are normal.Examination of the skin revealed no evidence of significant rashes, suspicious appearing nevi or other concerning lesions.Neurologically, the patient is awake and alert and the patient does not have any focal neurological deficit. Cranial nerves are essentially intact. Results - Laboratory Findings CBC and BMP: 01/12/21 05:53 01/12/21 07:26 PT/INR, D-dimer PT 11.0 sec (9.0-12.0) 01/10/21 11:17 INR 1.0 (<1.2) 01/10/21 11:17 Abnormal lab findings: Abnormal Labs 01/10/21 01/10/21 01/10/21 11:17 11:17 11:17 WBC 12.9 H RBC 3.88 L Hgb 12.0 L Hct 35.3 L Neutrophils # 9.6 H Monocytes # ESR Sodium Potassium Chloride BUN 27 H Glucose 103 H Calcium C-Reactive Protein Total Protein 6.0 L Albumin 3.0 L Procalcitonin Ur Specific Perkins 1.036 H Urine Protein 1+ H Hyaline Casts 37 H Urine Mucus Occasional H 01/10/21 01/10/21 01/10/21 11:17 11:17 11:17 WBC RBC Hgb Hct Neutrophils # Monocytes # ESR 101 H Sodium Potassium Chloride BUN Glucose Calcium C-Reactive Protein 34.8 H Total Protein Albumin Procalcitonin 0.16 H Ur Specific Perkins Urine Protein Hyaline Casts Urine Mucus 01/11/21 01/11/21 01/11/21 04:26 04:26 22:23 WBC 12.5 H RBC 3.89 L Hgb 12.2 L Hct 35.9 L Neutrophils # 9.2 H Monocytes # ESR Sodium 135 L 135 L Potassium Chloride BUN Glucose 105 H 128 H Calcium 8.3 L C-Reactive Protein Total Protein 5.7 L Albumin 2.8 L Procalcitonin Ur Specific Perkins Urine Protein Hyaline Casts Urine Mucus 01/12/21 01/12/21 01/12/21 05:30 05:53 07:26 WBC 15.4 H RBC 3.87 L Hgb 12.0 L Hct 35.4 L Neutrophils # 11.9 H Monocytes # 1.2 H ESR Sodium Potassium 5.4 H Chloride 110 H BUN Glucose 116 H 107 H Calcium 8.2 L C-Reactive Protein Total Protein 5.4 L Albumin 2.6 L Procalcitonin Ur Specific Perkins Urine Protein Hyaline Casts Urine Mucus - Diagnostic Findings Chest x-ray: image reviewed CT scan - chest: image reviewed Assessment and Plan Plan: 1 left lower lobe consolidation/effusion along with some mediastinal lymphadenopathy. The clinical picture is consistent with pneumonia especially the patient was running a fever and has a mild degree of leukocytosis. Nevertheless, malignancy cannot be completely excluded. We'll treat this patient for pneumonia at this point, a combination of antibiotics and the patient is currently on accommodation Zosyn and vancomycin. procalc level was at 0.16. Cultures of been sent. COVID-19 testing is been negative. 2 chronic smoker 3 possible COPD 4 PVOD , symptomatic 5 hyperlipidemia Plan Continue current treatment for now with accommodation Zosyn and vancomycin repeat chest x-ray in the morning repeat pro-calcitonin level monitor the progression of the left lower lobe consolidation and effusion May consider thoracentesis if there is any increase in the size of a left-sided pleural effusion Monitor fever pattern Smoking cessation counseling CPAP therapy to be continued on an outpatient basis We'll hold on doing any aggressive intervention at this point till The left lower lobe pneumonia is clear.
--- NOTE | 2021-01-12 12:10 | ECHOF ---
Referral Reason:possible PE MEASUREMENTS -------- HEIGHT: 182.9 cm WEIGHT: 105.7 kg BP: IVSd: 1.2 cm (0.6 - 1.1) LVIDd: 5.2 cm (3.9 - 5.3) LVPWd: 0.9 cm (0.6 - 1.1) IVSs: 1.5 cm LVIDs: 3.2 cm LVPWs: 1.8 cm Ao Diam: 3.6 cm (2.0 - 3.7) AV Cusp: 2.6 cm (1.5 - 2.6) LA Diam: 4.0 cm (2.7 - 3.8) MV EXCURSION: 14.447 mm (> 18.000) MV EF SLOPE: 56 mm/s (70 - 150) EPSS: 0.2 cm MV E Akash: 0.50 m/s MV DecT: 225 ms MV A Akash: 0.86 m/s MV E/A Ratio: 0.58 RAP: 5.00 mmHg RVSP: 14.20 mmHg FINDINGS -------- Sinus rhythm. This was a techncally difficult study with suboptimal views, , Lumason utilized for enhancement of im ages. LV size, wall thickness and systolic function are normal, with an EF greater than 55%. The left brian tricular size is normal. The right ventricle is normal in size. The left atrial size is normal. The right atrial size is normal. 5.0mg OF Lumason UTLIZED: 2 OR MORE WALL SEGMENTS NOT VISUALIZED. The aortic valve was not well visualized. The mitral valve leaflets are mildly thickened. Mild mitral regurgitation is present. The tricuspid valve appears structurally normal. Mild tricuspid regurgitation present. Right vent ricular systolic pressure is normal at < 35 mmHg. The pulmonic valve was not well visualized. There is no pericardial effusion. CONCLUSIONS -------- 1. This was a techncally difficult study with suboptimal views, , Lumason utilized for enhancement of images. 2. LV size, wall thickness and systolic function are normal, with an EF greater than 55%. 3. The left ventricular size is normal. 4. The left atrial size is normal. 5. 5.0mg OF Lumason UTLIZED: 2 OR MORE WALL SEGMENTS NOT VISUALIZED. 6. The aortic valve was not well visualized. 7. Mild mitral regurgitation is present. 8. Mild tricuspid regurgitation present. 9. There is no pericardial effusion. SHADE BANDER: Adelaida Bravo RDCS
[2021-01-12 12:19] LABS: Glucose,Whole Blood 108 mg/dL (75-99)
--- NOTE | 2021-01-12 12:30 | P.CRDCN ---
History of Present Illness History of present illness: 65-year-old male with significant medical history of Hypertension, Hyperlipidemia, peripheral vascular/peripheral artery disease s/p fem-fem bypass with complications with MRSA infection and had to have his bypass re-done, chronic back pain with associated cervical fusions,lumbar effusions, bilateral carpal tunnel, right ulnar nerve release, sleep apnea/CPAP BiPAP,and nicotine d ependence (states he quit 1 week ago). We were consulted for left sided chest pain. He presented to the hospital with consistent fevers at home, Tmax at home 102.9, cough, and some sinus drainage. He was scheduled for an angiogram on Saturday at [facility] with his vascular doctor Dr. Lacy. Due to his fevers, they told the patient to get worked up, the procedure was canceled and patient presented to the emergency department due to continuous high fevers at home. Chest xray on admission revealed new left basiliar airspace disease, concerning for pneumonia. He was initially started on ceftriaxone IV piggyback, and Zithromax IV piggyback. He was transition to IV Zosyn and IV vancomycin. Yesterday night around 8pm, patient started to have significant increased sharp left sided mid back pain. He states it felt as if someone was stabbing him with a knife. He had elevated blood pressure, was tachycardic. He went for a stat CT chest which revealed left lower lobe pneumonia, concern for paraneumonic effusion, emphysema, interstitial lung disease, old granulomatous disease, No evidence of PE. His EKG revealed sinus tachycardia HR 115, right bundle branch block, no significant ST-T wave abnormalities. He does have left sided chest pain, that is reproducible, increases with cough, deep breathing and palpation. Echocardiogram was ordered and revealed, LV size, wall thickness and systolic function is normal with EF greater than 55%, mild mitral regurgitation, mild tricuspid regurgitation. Troponin this 01/12 morning was negative. Patient denies shortness of breath, palpitations, lightheadedness, dizziness. He does occasionally have numbness and tingling to his bilateral lower extremities. Laboratory reviewed, WBC 15.4, hemoglobin 12, platelets 254, sodium 139, potassium 4.9, BUN 16, creatinine 0.70, magnesium 2.3. Current cardiac medications include aspirin 81 mg daily, atorvastatin 10 mg nightly, Plavix 75 mg daily, losartan 50 mg daily, metoprolol tartrate 12.5 mg daily REVIEW OF SYSTEMS At the time of my exam: CONSTITUTIONAL: Denies fever or chills. CARDIOVASCULAR: Denies chest pain, shortness of breath, orthopnea, PND or palpitations. RESPIRATORY: Denies cough. GASTROINTESTINAL: Denies abdominal pain, diarrhea, constipation, nausea or vomiting. MUSCULOSKELETAL: Denies myalgias. NEUROLOGIC: Denies numbness, tingling, headacbe or weakness. ENDOCRINE: Denies fatigue, weight change, polydipsia or polyurina. GENITOURINARY: Denies burning, hematuria or urgency with micturation. HEMATOLOGIC: Denies history of anemia or bleeding. PHYSICAL EXAMINATION Blood pressure 109/76 heart rate 76 afebrile and maintaining oxygen saturation 94% on 5 L nasal cannula. CONSTITUTIONAL: No apparent distress. HEENT: Head is normocephalic. Pupils are equal, round. Sclerae anicteric. Mucous membranes of the mouth are moist. No JVD. No carotid bruit. CHEST EXAMINATION: Lungs are clear to auscultation. No chest wall tenderness is noted on palpation or with deep breathing. HEART EXAMINATION: Regular rate and rhythm. S1, S2 heard. No murmurs, gallops or rub. ABDOMEN: Soft, nontender. Positive bowel sounds. EXTREMITIES: 2+ peripheral pulses, no lower extremity edema and no calf tenderness. NEUROLOGIC EXAMINATION: Patient is awake, alert and oriented x3. ASSESSMENT Chest pain, atypical do not think this is acute coronary syndrome Left lower lobe Pneumonia Hypertension Dyslipidemia Peripheral Vascular Disease Chronic back pain Obstructive sleep apnea Nicotine dependence PLAN From cardiology perspective, do not believe this is acute coronary syndrome with normal troponin and no ischemia noted on EKG. Echocardiogram shows LV size, wall thickness and systolic function is normal with EF greater than 55%, no acute findings No further cardiology workup recommended Continue home cardiac medications Pulmonary is following patient Rest of management per primary We will sign off at this time. Please reach out with any other questions or concerns Nurse Practitioner note has been reviewed, I agree with a documented findings and plan of care. Patient was seen and examined. Past Medical History Past Medical History: Sleep Apnea/CPAP/BIPAP Additional Past Medical History / Comment(s): NO CPAP/BIPAP. CHRONIC NECK/BACK PAIN. History of Any Multi-Drug Resistant Organisms: None Reported Past Surgical History: Appendectomy, Back Surgery, Orthopedic Surgery, Tonsillectomy Additional Past Surgical History / Comment(s): BACK: 1 CERVICAL FUSION, 3 LUMBAR. BILATERAL CARPAL TUNNEL. RIGHT ULNAR NERVE RELEASE. Past Anesthesia/Blood Transfusion Reactions: Family History of Problems w/ Anesthesia Additional Past Anesthesia/Blood Transfusion Reaction / Comment(s): SISTER PONV Past Psychological History: No Psychological Hx Reported Smoking Status: Current some day smoker Past Alcohol Use History: Occasional Past Drug Use History: Cocaine Additional Drug Use History / Comment(s): states did cocaine 30-40 years ago Medications and Allergies Home Medications Medication Instructions Recorded Confirmed Type ALPRAZolam [Xanax] 1 mg PO HS 02/11/15 01/10/21 History Aspirin EC [Ecotrin Low Dose] 81 mg PO DAILY 01/10/21 01/10/21 History Atorvastatin [Lipitor] 10 mg PO HS 01/10/21 01/10/21 History Clopidogrel [Plavix] 75 mg PO DAILY 01/10/21 01/10/21 History FLUoxetine HCL [PROzac] 20 mg PO DAILY 01/10/21 01/10/21 History Ibuprofen [Motrin] 800 mg PO Q8H PRN 01/10/21 01/10/21 History Multivit-Min/FA/Lycopen/Lutein 1 tab PO DAILY 01/10/21 01/10/21 History [Centrum Silver Tablet] Pregabalin [Lyrica] 150 mg PO BID 01/10/21 01/10/21 History Varenicline [Chantix Continuing 1 mg PO BID 01/10/21 01/10/21 History Pack] oxyCODONE-APAP 10-325MG [Percocet 1 tab PO QID 01/10/21 01/10/21 History 10-325 mg] Allergies Allergy/AdvReac Type Severity Reaction Status Date / Time gabapentin Allergy Swelling Verified 01/10/21 11:33 Physical Exam Vitals: Vital Signs Temp Pulse Resp BP Pulse Ox 01/12/21 03:33 98.6 F 76 17 109/76 94 L 01/11/21 23:05 102.4 F H 110 H 19 152/68 95 01/11/21 21:12 92 L 01/11/21 19:42 102.2 F H 118 H 22 184/55 94 L 01/11/21 18:00 98.5 F 01/11/21 15:25 84 145/77 01/11/21 15:24 83 135/72 01/11/21 14:51 97.7 F 81 18 140/62 93 L Intake and Output 01/11/21 01/12/21 01/12/21 22:59 06:59 14:59 Other: Voiding Method Toilet Results 01/12/21 05:53 01/12/21 07:26 Cardiac Enzymes 01/12/21 Range/Units 05:30 AST 34 (17-59) U/L CBC 01/12/21 Range/Units 05:53 WBC 15.4 H (3.8-10.6) k/uL RBC 3.87 L (4.30-5.90) m/uL Hgb 12.0 L (13.0-17.5) gm/dL Hct 35.4 L (39.0-53.0) % Plt Count 254 (150-450) k/uL Comprehensive Metabolic Panel 01/11/21 01/12/21 Range/Units 22:23 05:30 Sodium 135 L 140 (137-145) mmol/L Potassium 4.3 5.4 H (3.5-5.1) mmol/L Chloride 102 110 H (98-107) mmol/L Carbon Dioxide 25 22 (22-30) mmol/L BUN 19 18 (9-20) mg/dL Creatinine 0.76 0.77 (0.66-1.25) mg/dL Glucose 128 H 116 H (74-99) mg/dL Calcium 8.3 L 8.2 L (8.4-10.2) mg/dL AST 34 (17-59) U/L ALT 29 (4-49) U/L Alkaline Phosphatase 77 (38-126) U/L Total Protein 5.4 L (6.3-8.2) g/dL Albumin 2.6 L (3.5-5.0) g/dL Current Medications Generic Name Dose Route Start Last Admin Trade Name Freq PRN Reason Stop Dose Admin Albuterol Sulfate 2 puff 01/10/21 20:00 01/11/21 20:25 Albuterol Hfa Inhaler INHALATION 2 puff RT-QID TRAY Administration Alprazolam 1 mg 01/10/21 21:00 01/11/21 20:05 Alprazolam 1 Mg Tab PO 1 mg HS TRAY Administration Aspirin 81 mg 01/11/21 09:00 01/11/21 08:07 Aspirin 81 Mg PO 81 mg DAILY TRAY Administration Atorvastatin Calcium 10 mg 01/10/21 21:00 01/11/21 20:05 Atorvastatin 10 Mg Tab PO 10 mg HS TRAY Administration Clopidogrel Bisulfate 75 mg 01/11/21 09:00 01/11/21 08:07 Clopidogrel 75 Mg Tab PO 75 mg DAILY TRAY Administration Fluoxetine HCl 20 mg 01/11/21 09:00 01/11/21 08:07 Fluoxetine Hcl 20 Mg Cap PO 20 mg DAILY TRAY Administration Lactated Ringer's 1,000 mls @ 75 mls/hr 01/10/21 19:00 01/11/21 22:03 Lactated Ringers IV Not Given .[id number] TRAY Piperacillin Sod/Tazobactam 100 mls @ 25 mls/hr 01/11/21 04:00 01/12/21 03:18 Sod 3.375 gm/ Sodium Chloride IVPB 25 mls/hr Q8H TRAY Administration Vancomycin HCl 1,750 mg/ 500 mls @ 167 mls/hr 01/11/21 12:00 01/12/21 03:18 Sodium Chloride IVPB 167 mls/hr Q8H TRAY Administration Ibuprofen 600 mg 01/12/21 22:48 Ibuprofen 600 Mg Tab PO TID PRN Fever Losartan Potassium 50 mg 01/11/21 23:00 01/11/21 23:13 Losartan 50 Mg Tab PO 50 mg DAILY TRAY Administration Metoprolol Tartrate 12.5 mg 01/11/21 23:00 01/11/21 23:13 Metoprolol Tartrate 12.5 Mg Tab PO 12.5 mg DAILY@2100 TRAY Administration Miscellaneous Information 1 each 01/10/21 13:23 Pneumonia Protocol Utilized 1 Each Misc PO ONCE PRN Per Protocol Multivitamins 1 each 01/11/21 09:00 01/11/21 08:07 Multivitamins, Thera 1 Each Tab PO 1 each DAILY TRAY Administration Oxycodone/Acetaminophen 1 each 01/10/21 18:00 01/12/21 06:09 Oxycodone-Apap 10-325mg 1 Each Tab PO 1 each QID TRAY Administration Pregabalin 150 mg 01/10/21 21:00 01/11/21 20:05 Pregabalin 75 Mg Cap PO 150 mg BID TRAY Administration Intake and Output 01/11/21 01/12/21 01/12/21 22:59 06:59 14:59 Other: Voiding Method Toilet 01/12/21 05:53 01/12/21 05:30
[2021-01-12] MEDS: INSULIN ASPART (NovoLOG) 100 UNIT/ML VIAL SQ SCH ×4 (12:38→20:28)
[2021-01-12] MEDS: methylPREDNISolone SOD SUCCI 125 MG/2 ML VIAL IV SCH ×3 (12:57→23:18)
[2021-01-12] MEDS: LACTATED RINGERS 1,000 ML IV SCH ×2 (13:01→23:18)
[2021-01-12 17:21] LABS: Glucose,Whole Blood 247 mg/dL (75-99)
--- NOTE | 2021-01-12 20:04 | P.PN ---
Subjective Progress Note Date: 01/12/21 Principal diagnosis: Pneumonia leukocytosis 65-year-old male was admitted to the hospital for pneumonia with associated intermittent fevers. Patient has significant medical history of Hyperlipidemia, peripheral vascular/peripheral artery disease, chronic back pain with associated cervical fusions,lumbar effusions, bilateral carpal tunnel, right ulnar nerve release, sleep apnea/CPAP BiPAP,and nicotine dependence.Emergency diagnostic workup showed pneumonia, and leukocytosis. Patient has also significant history of MRSA. For pneumonia patient was initially started on 2 g ceftriaxone IV piggyback, and Zithromax 500 mg IV piggyback Q 24 hours. With significant history of and MRSA, Vancomycin for pharmacy dose, and Zosyn 3.375 g IV piggyback to cover Pseudomonas. January 12, 2021 during the night the patient had a episode of severe sharp chest pain pleuritic in nature with associated tachycardia and fever. Was contacted by nursing staff,CTA of the chest was ordered, echocardiogram, An additional antihypertensive for hyper to observe episodes. CT of the chest was negative for PE. Patient was transferred to the cardiac step unit for further monitoring of patient care. Upon rounding this a.m. patient resting comfortably in chair with oxygen saturation's greater than 92% and 2 L nasal cannula. Patient afebrile alert and oriented in following commands with no apparent acute signs of distress. Patient continues to endorse shortness of breath with exertion, generalized fatigue and chronic back pain. Awaiting echocardiogram this a.m., and awaiting on consultation from cardiology pulmonary critical care and infectious disease for recommendations and treatment plan Objective - Vital Signs Vital signs: Vital Signs Temp 98.7 F 01/12/21 16:30 Pulse 97 01/12/21 16:30 Resp 20 01/12/21 16:30 BP 143/54 01/12/21 16:30 Pulse Ox 90 L 01/12/21 16:30 Intake & Output 01/12/21 01/12/21 01/13/21 06:59 18:59 06:59 Intake Total 720 Balance 720 Intake: Oral 720 Other: Voiding Method Toilet Toilet # Voids 2 2 - Constitutional General appearance: Present: mild distress - EENT Eyes: Present: EOMI, PERRLA, normal appearance ENT: Present: normal oropharynx Ears: bilateral: normal - Neck Neck: Present: normal ROM Carotids: bilateral: upstroke normal Thyroid: bilateral: normal size - Respiratory Respiratory: bilateral: diminished (Anterior and posterior lung conrad) - Cardiovascular Details: Normal sinus rhythm Heart rate: 97 Rhythm: regular Heart sounds: normal: S1, S2 - Peripheral pulses radial pulse Peripheral Pulses: bilateral: Normal femoral Peripheral Pulses: bilateral: Normal - Gastrointestinal General gastrointestinal: Present: normal bowel sounds - Integumentary Integumentary: Present: normal turgor - Neurologic Neurologic: Present: CNII-XII intact - Musculoskeletal Musculoskeletal: Present: generalized weakness - Psychiatric Psychiatric: Present: A&O x's 3, appropriate affect, intact judgment & insight - Labs CBC & Chem 7: 01/12/21 05:53 01/12/21 07:26 Labs: Abnormal Lab Results - Last 24 Hours (Table) 01/11/21 01/12/21 01/12/21 Range/Units 22:23 05:30 05:53 WBC 15.4 H (3.8-10.6) k/uL RBC 3.87 L (4.30-5.90) m/uL Hgb 12.0 L (13.0-17.5) gm/dL Hct 35.4 L (39.0-53.0) % Neutrophils # 11.9 H (1.3-7.7) k/uL Monocytes # 1.2 H (0-1.0) k/uL Sodium 135 L (137-145) mmol/L Potassium 5.4 H (3.5-5.1) mmol/L Chloride 110 H (98-107) mmol/L Glucose 128 H 116 H (74-99) mg/dL POC Glucose (mg/dL) (75-99) mg/dL Calcium 8.3 L 8.2 L (8.4-10.2) mg/dL Total Protein 5.4 L (6.3-8.2) g/dL Albumin 2.6 L (3.5-5.0) g/dL Procalcitonin (0.02-0.09) ng/mL 01/12/21 01/12/21 01/12/21 Range/Units 07:26 07:26 12:18 WBC (3.8-10.6) k/uL RBC (4.30-5.90) m/uL Hgb (13.0-17.5) gm/dL Hct (39.0-53.0) % Neutrophils # (1.3-7.7) k/uL Monocytes # (0-1.0) k/uL Sodium (137-145) mmol/L Potassium (3.5-5.1) mmol/L Chloride (98-107) mmol/L Glucose 107 H (74-99) mg/dL POC Glucose (mg/dL) 108 H (75-99) mg/dL Calcium (8.4-10.2) mg/dL Total Protein (6.3-8.2) g/dL Albumin (3.5-5.0) g/dL Procalcitonin 0.10 H (0.02-0.09) ng/mL 01/12/21 Range/Units 17:19 WBC (3.8-10.6) k/uL RBC (4.30-5.90) m/uL Hgb (13.0-17.5) gm/dL Hct (39.0-53.0) % Neutrophils # (1.3-7.7) k/uL Monocytes # (0-1.0) k/uL Sodium (137-145) mmol/L Potassium (3.5-5.1) mmol/L Chloride (98-107) mmol/L Glucose (74-99) mg/dL POC Glucose (mg/dL) 247 H (75-99) mg/dL Calcium (8.4-10.2) mg/dL Total Protein (6.3-8.2) g/dL Albumin (3.5-5.0) g/dL Procalcitonin (0.02-0.09) ng/mL Microbiology - Last 24 Hours (Table) 01/10/21 11:17 Blood Culture - Preliminary Blood No Growth after 48 hours 01/10/21 11:17 Blood Culture - Preliminary Blood No Growth after 48 hours Assessment and Plan Assessment: Pneumonia, continue Zosyn 3.375 g IV piggyback, continue vancomycin per pharmacy dose COPD leukocytosis continue to trend peripheral artery disease chronic back pain with multiple fusions mixed anxiety and depression hyperlipidemia full code Plan: Pneumonia continue IV antibiotics COPD-breathong treatments around the clock, IV STEROIDS leukocytosis continue to trend Hypertension, additional anti-hypertensive chronic back pain continue analgesics as needed fever continue antipyretic's continue medical management continue to monitor vital signs and diagnostic testing further recommendations to come based on patient's clinical condition Time with Patient: Greater than 30
[2021-01-12 20:15] LABS: Glucose,Whole Blood 263 mg/dL (75-99)
[2021-01-12] MEDS: ALPRAZolam 1 MG TAB PO SCH (20:28)
[2021-01-12] MEDS: ATORVASTATIN 10 MG TAB PO SCH (20:28)
[2021-01-12] MEDS: METOPROLOL TARTRATE 12.5 MG TAB PO SCH (20:28)
[2021-01-12] MEDS ORDERED: IBUPROFEN 600 MG TAB PO PRN (22:48)
--- NOTE | 2021-01-12 23:07 | CONS ---
CONSULTATION DATE OF SERVICE: 01/12/2021 REASON FOR CONSULTATION: Fever. HISTORY OF PRESENT ILLNESS: The patient is a 65-year-old male who has been in the hospital since Saturday after the patient was sent home on Saturday from the vascular surgeon as the patient was noticed to be febrile and his procedure was put on hold. The patient did not recall if he was running any fever before going for the procedure and did not have any symptoms. The patient subsequently made an appointment to see his primary care physician next day, that is Saturday and the patient was subsequently sent to the ER for further evaluation. On arrival to the ER, patient did have a fever of 101.5 degrees Fahrenheit with fever 102 degrees Fahrenheit in the evening. The patient is afebrile this morning. The patient also hypoxic requiring supplemental oxygen. The patient did have elevated white count. The patient denies having any headache or URI symptoms. The patient denies having any chest pain or shortness of breath. He did have a cough which is moderate intensity with occasional sputum production. No hemoptysis. Denies having any nausea, no vomiting. No abdominal pain. No diarrhea and no urinary symptoms. Workup so far including patient with white count on admission was 12.9, however, up to 15.4. The patient did have normal kidney function and electrolytes. Liver enzymes are normal. CRP was 34.8. Procalcitonin 0.16. Urine was negative. Khan PCR was negative. The patient did have a CT angiogram which did show evidence of left lower lobe pneumonia. Patient has been treated with Zithromax, vancomycin and Zosyn. Infectious Disease was consulted for further management of antibiotic therapy. REVIEW OF SYSTEMS: Positive points have been mentioned in HPI. Rest of systems are negative. PAST MEDICAL HISTORY: Sleep apnea, chronic back pain. PAST SURGICAL HISTORY: Appendectomy, back surgery, tonsillectomy, carpal tunnel release. SOCIAL HISTORY: Remote history of smoking. Rarely drinks. No drug use. FAMILY HISTORY: No pertinent findings noticed. ALLERGIES: GABAPENTIN. MEDICATIONS: The patient is currently on DuoNeb, Xanax, aspirin, Lipitor, Plavix, Prozac, Motrin, NovoLog, lactated Ringer's, Solu-Medrol, Lopressor, Theragran, Zosyn, vancomycin and Zithromax. PHYSICAL EXAMINATION: Blood pressure is 142/69 with a pulse of 89. Temperature is 97.7. He is 90% on 2 L nasal cannula. General description is a middle-aged male up in the room in no distress. No tachypnea or accessory muscles of respiration use. HEENT examination is slight pallor. No scleral icterus. Oral mucous membranes dry. NECK: Trachea central. No thyromegaly. LUNGS unlabored breathing, decreased breath sounds at the base. No wheeze or crackles. HEART S1, S2. Regular rate and rhythm. ABDOMEN: Soft, no tenderness. No guarding. No rigidity. No organomegaly. EXTREMITIES: No edema of the feet. SKIN: No rash or mass palpable. NEUROLOGICAL: The patient is awake and alert. Oriented times three. Mood and affect normal. LABS: Hemoglobin is 12.7, white count 15.4. BUN of 18, creatinine 0.77. Electrolytes have been normal. Liver enzymes are normal. Procalcitonin 0.16. Urine is negative. Khan PCR was negative. Urine for Legionella antigen is negative. DIAGNOSTIC IMPRESSION AND PLAN: Patient admitted to the hospital with sepsis in this patient who did have a fever, elevated white count, source is left lower lobe pneumonia, more likely community- acquired, possible Gram-negative pneumonia less likely but not entirely excluded. Clinically no risk factor for MRSA pneumonia and urine for Legionella antigen was negative. PLAN: 1. We will obtain sputum for Gram stain and culture. 2. Discontinue vancomycin and Zithromax. 3. Continue the patient on Zosyn 3.375 g q.8 hours. 4. We will follow on clinical condition and culture to further adjust medication if needed. Thank you for this consultation. Will follow this patient along with you. MMODL / IJN: [id number] /
[2021-01-13] MEDS: PIPERACILLIN-TAZOBACTAM 3.375 GM in SODIUM CHLORIDE 0.9% 100 ML IVPB SCH ×3 (03:41→20:34)
[2021-01-13 05:37] LABS: Mycoplasma IgG Antibody (EIA) 1.45 INDEX (<=0.90); Mycoplasma IgM Antibody 0.15 INDEX (<=0.90)
[2021-01-13 06:29] LABS: Glucose,Whole Blood 235 mg/dL (75-99)
[2021-01-13] MEDS: methylPREDNISolone SOD SUCCI 125 MG/2 ML VIAL IV SCH ×4 (06:36→23:21)
[2021-01-13] MEDS: INSULIN ASPART (NovoLOG) 100 UNIT/ML VIAL SQ SCH ×4 (06:36→21:04)
[2021-01-13] MEDS: IPRATROPIUM-ALBUTEROL 3 ML NEB INHALATION SCH ×4 (07:35→20:13)
--- NOTE | 2021-01-13 08:45 | XR ---
EXAMINATION TYPE: XR chest 1V portable DATE OF EXAM: 01/13/2021 COMPARISON: 01/11/2021 INDICATION: Short of breath, pneumonia TECHNIQUE: Single frontal view of the chest is obtained. FINDINGS: The heart size is normal. The pulmonary vasculature is normal. There is a moderate left pleural effusion which is increased from comparison. Some adjacent compressi ve atelectasis is present. IMPRESSION: 1. Increasing left moderate pleural effusion. 2. Adjacent compressive atelectasis.
[2021-01-13 08:59] LABS: Basophils % (A) 0 %; Eosinophils % (A) 0 %; HCT 37.4 % (39.0-53.0); HGB 12.1 gm/dL (13.0-17.5); Lymphocytes # (A) 1.4 k/uL (1.0-4.8); Lymphocytes % (A) 6 %; MCH 30.2 pg (25.0-35.0); MCHC 32.3 g/dL (31.0-37.0); MCV 93.7 fL (80.0-100.0); Mean Platelet Volume 7.4; Monocytes # (A) 0.5 k/uL (0-1.0); Monocytes % (A) 2 %; Neutrophils # (A) 24.1 k/uL (1.3-7.7); Neutrophils % (A) 92 %; Platelet Count 481 k/uL (150-450); RDW 12.6 % (11.5-15.5); WBC 26.2 k/uL (3.8-10.6)
[2021-01-13] MEDS: oxyCODONE-APAP 10-325MG 1 EACH TAB PO SCH ×4 (09:04→21:53)
[2021-01-13] MEDS: CLOPIDOGREL 75 MG TAB PO SCH (09:04)
[2021-01-13] MEDS: PREGABALIN 75 MG CAP PO SCH ×2 (09:04→20:36)
[2021-01-13] MEDS: LOSARTAN 50 MG TAB PO SCH (09:04)
[2021-01-13] MEDS: MULTIVITAMINS, THERA 1 EACH TAB PO SCH (09:04)
[2021-01-13] MEDS: FLUoxetine HCL 20 MG CAP PO SCH (09:04)
[2021-01-13] MEDS: ASPIRIN 81 MG PO SCH (09:04)
[2021-01-13 09:17] LABS: ALT 27 U/L (4-49); AST 22 U/L (17-59); African American GFR (CKD) >90 (>60 ml/min/1.73 sqM); Alkaline Phosphatase 106 U/L (38-126); Anion Gap 11 mmol/L; Blood Urea Nitrogen 15 mg/dL (9-20); Calcium 8.9 mg/dL (8.4-10.2); Carbon Dioxide 25 mmol/L (22-30); Chloride 105 mmol/L (98-107); Glucose 210 mg/dL (74-99); Non-African American GFR(CKD) >90 (>60 ml/min/1.73 sqM); Potassium 4.3 mmol/L (3.5-5.1); Sodium 141 mmol/L (137-145); Total Bilirubin 0.5 mg/dL (0.2-1.3); Total Protein 6.1 g/dL (6.3-8.2)
[2021-01-13 11:46] LABS: Glucose,Whole Blood 162 mg/dL (75-99)
--- NOTE | 2021-01-13 16:10 | P.PN ---
Subjective Progress Note Date: 01/13/21 Principal diagnosis: Left lower lobe consolidation/effusion, pneumonia with parapneumonic effusion and mediastinal lymphadenopathy 65-year-old male patient, coming in for a left lower lobe pneumonia. The patient has severe peripheral vascular disease. He was seen by vascular surgeon he was supposed to undergo vascular intervention and he was found to be febrile and he was discharged to be followed up by his primary care physician. Obviously there was a concern for fever and infection and he was discharged home. The patient did not notice that he was having fever. Upon further check, he had a temperature of 102 and he came into the emergency department and the chest x-ray was done that showed a left lower lobe consolidation. CAT scan of the chest was also done and this confirmed the presence of an extensive left lower lobe consolidation along with a small left-sided pleural effusion. There was also some reactive lymphadenopathy in the subcarinal area. There was a calcified granuloma in the left upper lobe also. No evidence of any pulmonary embolism. The patient was started on a combination of antibiotics including Zosyn and vancomycin. Legionella urine antigen was negative. He was placed on oxygen and currently is on 2 L of oxygen by nasal cannula with a pulse ox of 94%. Earlier he was on 5 L. Currently is afebrile. Blood culture has been sent and the results are still pending for now. He has a congested cough. He did have some hemoptysis 2 days back. No pleurisy. No history of any DVT or pulmonary embolism. White cell count is at 15.4. Smoke up to 2 packs of cigarettes a day and currently he states that he's quit smoking approximately a week ago. No oxygen. No maintenance as for medications On 01/13/2001 patient seen in follow-up on [facility] care unit, he is up in the chair, he is on 2 L oxygen pulse ox is 92%, he's been afebrile, hemodynamically stable, he states his cough has improved, overall he is feeling better, and his chest discomfort has also improved. No hemoptysis, today's follow-up chest x- ray shows increasing left moderate left pleural effusion, and adjacent compressive atelectasis. Patient remains on Zosyn. He's had no fever or chills. Today's labs have been reviewed, white blood cell count was 26.2, hemoglobin is 12.1, electrolytes and renal profile were within normal limits. His follow-up pro-calcitonin is improved and is down to 0.10 from 0.16 a couple days ago. Blood and sputum cultures are pending, negative thus far Objective - Vital Signs Vital signs: Vital Signs Temp 97.8 F 01/13/21 12:22 Pulse 87 01/13/21 15:49 Resp 18 01/13/21 12:22 BP 131/61 01/13/21 12:22 Pulse Ox 92 L 01/13/21 12:22 Intake & Output 01/12/21 01/13/21 01/13/21 18:59 06:59 18:59 Intake Total 720 400 690 Balance 720 400 690 Weight 109.8 kg Intake: Intake, IV Titration 450 Amount Lactated Ringers 1,000 ml 450 @ 75 mls/hr IV .[id number] [facility] Rx#:[id number] Oral 720 400 240 Other: Voiding Method Toilet Toilet # Voids 2 1 1 - Exam GENERAL EXAM: Alert, very pleasant, 65-year-old white male on 4 L of oxygen with pulse ox of 92%, comfortable in no apparent distress. HEAD: Normocephalic/atraumatic. EYES: Normal reaction of pupils, equal size. Conjunctiva pink, sclera white. NOSE: Clear with pink turbinates. THROAT: No erythema or exudates. NECK: No masses, no JVD, no thyroid enlargement, no adenopathy. CHEST: No chest wall deformity. Symmetrical expansion. LUNGS: Equal air entry with diminished breath sounds at the bases CVS: Regular rate and rhythm, normal S1 and S2, no gallops, no murmurs, no rubs ABDOMEN: Soft, nontender. No hepatosplenomegaly, normal bowel sounds, no guarding or rigidity. EXTREMITIES: No clubbing, no edema, no cyanosis, 2+ pulses and upper and lower extremities. MUSCULOSKELETAL: Muscle strength and tone normal. SPINE: No scoliosis or deformity SKIN: No rashes CENTRAL NERVOUS SYSTEM: Alert and oriented -3. No focal deficits, tone is normal in all 4 extremities. PSYCHIATRIC: Alert and oriented -3. Appropriate affect. Intact judgment and insight. - Labs CBC & Chem 7: 01/13/21 08:12 01/13/21 08:12 Labs: Abnormal Lab Results - Last 24 Hours (Table) 01/11/21 01/12/21 01/12/21 Range/Units 04:26 07:26 17:19 WBC (3.8-10.6) k/uL RBC (4.30-5.90) m/uL Hgb (13.0-17.5) gm/dL Hct (39.0-53.0) % Plt Count (150-450) k/uL Neutrophils # (1.3-7.7) k/uL Creatinine (0.66-1.25) mg/dL Glucose (74-99) mg/dL POC Glucose (mg/dL) 247 H (75-99) mg/dL Total Protein (6.3-8.2) g/dL Albumin (3.5-5.0) g/dL Procalcitonin 0.10 H (0.02-0.09) ng/mL Mycoplasma pneumon IgG 1.45 H (<=0.90) INDEX 01/12/21 01/13/21 01/13/21 Range/Units 20:12 06:26 08:12 WBC 26.2 H (3.8-10.6) k/uL RBC 4.00 L (4.30-5.90) m/uL Hgb 12.1 L (13.0-17.5) gm/dL Hct 37.4 L (39.0-53.0) % Plt Count 481 H (150-450) k/uL Neutrophils # 24.1 H (1.3-7.7) k/uL Creatinine (0.66-1.25) mg/dL Glucose (74-99) mg/dL POC Glucose (mg/dL) 263 H 235 H (75-99) mg/dL Total Protein (6.3-8.2) g/dL Albumin (3.5-5.0) g/dL Procalcitonin (0.02-0.09) ng/mL Mycoplasma pneumon IgG (<=0.90) INDEX 01/13/21 01/13/21 Range/Units 08:12 11:44 WBC (3.8-10.6) k/uL RBC (4.30-5.90) m/uL Hgb (13.0-17.5) gm/dL Hct (39.0-53.0) % Plt Count (150-450) k/uL Neutrophils # (1.3-7.7) k/uL Creatinine 0.63 L (0.66-1.25) mg/dL Glucose 210 H (74-99) mg/dL POC Glucose (mg/dL) 162 H (75-99) mg/dL Total Protein 6.1 L (6.3-8.2) g/dL Albumin 3.0 L (3.5-5.0) g/dL Procalcitonin (0.02-0.09) ng/mL Mycoplasma pneumon IgG (<=0.90) INDEX Microbiology - Last 24 Hours (Table) 01/10/21 11:17 Blood Culture - Preliminary Blood No Growth after 72 hours 01/10/21 11:17 Blood Culture - Preliminary Blood No Growth after 72 hours 01/12/21 14:17 Gram Stain - Preliminary Sputum Sputum Culture - Preliminary Assessment and Plan Plan: Assessment: 1 left lower lobe consolidation/effusion along with some mediastinal lymphadenopathy. The clinical picture is consistent with pneumonia especially the patient was running a fever and has a mild degree of leukocytosis. Nevertheless, malignancy cannot be completely excluded. We'll treat this patient for pneumonia at this point, a combination of antibiotics and the patient is currently on accommodation Zosyn and vancomycin. procalc level was at 0.16. Cultures of been sent. COVID-19 testing is been negative. 2 chronic smoker 3 possible COPD 4 PVOD , symptomatic 5 hyperlipidemia Plan: Today's chest x-ray has been reviewed Clinically patient is stable Afebrile Continue with Zosyn for antibiotic coverage Obtain follow-up chest x-ray tomorrow Follow-up labs We'll await final cultures We'll continue to follow I performed a history & physical examination of the patient and discussed their management with my nurse practitioner, Jazmine Valles. I reviewed the nurse practitioner's note and agree with the documented findings and plan of care. Lung sounds are positive for diminished breath sounds throughout the lung conrad. The findings and the impression was discussed with the patient. I attest to the documentation by the nurse practitioner. Time with Patient: Less than 30
[2021-01-13 16:54] LABS: Glucose,Whole Blood 351 mg/dL (75-99)
[2021-01-13] MEDS: LACTATED RINGERS 1,000 ML IV SCH (17:29)
[2021-01-13 17:32] LABS: Glucose,Whole Blood 312 mg/dL (75-99)
[2021-01-13] MEDS ORDERED: INSULIN ASPART (NovoLOG) 100 UNIT/ML VIAL SQ ONE (17:37)
--- NOTE | 2021-01-13 17:51 | PN ---
PROGRESS NOTE DATE OF SERVICE: 01/13/2021 REASON FOR FOLLOWUP: Pneumonia. INTERVAL HISTORY: The patient is afebrile. The patient is breathing comfortably. The patient denies having any chest pain. He could have a cough, bringing up some sputum. No hemoptysis. No nausea, no vomiting. No abdominal pain, no diarrhea. PHYSICAL EXAMINATION: Blood pressure 131/60 with a pulse of 92, temperature 98. He is 92% on 2 L nasal cannula. General description is a middle-aged male up in the in bed in no distress. Respiratory system: Unlabored breathing with decreased intensity of breath sounds. No wheeze. Heart: S1, S2. Regular rate and rhythm. Abdomen soft, no tenderness. LABS: Hemoglobin is 12.1, white count 6.2, BUN of 15, creatinine 0.63. Sputum culture pending. Blood culture so far negative. DIAGNOSTIC IMPRESSION AND PLAN: Patient admitted to the hospital with fever, source is left lower lobe pneumonia. Patient is covered with Zosyn to continue. Sputum culture will be monitored and antibiotic adjusted if needed. The patient did have significant jump in the white count, more likely steroid effect as no evidence of any worsening of his clinical condition. MMODL / IJN: [id number] /
[2021-01-13 19:57] LABS: Glucose,Whole Blood 356 mg/dL (75-99)
[2021-01-13] MEDS: ALPRAZolam 1 MG TAB PO SCH (20:35)
[2021-01-13] MEDS: METOPROLOL TARTRATE 12.5 MG TAB PO SCH (20:35)
[2021-01-13] MEDS: ATORVASTATIN 10 MG TAB PO SCH (20:36)
[2021-01-13 21:02] LABS: Glucose,Whole Blood 296 mg/dL (75-99)
--- NOTE | 2021-01-13 22:08 | P.PN ---
Subjective Progress Note Date: 01/13/21 Principal diagnosis: Pneumonia leukocytosis COPD 65-year-old male was admitted to the hospital for pneumonia with associated intermittent fevers. Patient has significant medical history of Hyperlipidemia, peripheral vascular/peripheral artery disease, chronic back pain with associated cervical fusions,lumbar effusions, bilateral carpal tunnel, right ulnar nerve release, sleep apnea/CPAP BiPAP,and nicotine dependence.Emergency diagnostic workup showed pneumonia, and leukocytosis. Patient has also significant history of MRSA. For pneumonia patient was initially started on 2 g ceftriaxone IV piggyback, and Zithromax 500 mg IV piggyback Q 24 hours. With significant history of and MRSA, Vancomycin for pharmacy dose, and Zosyn 3.375 g IV piggyback to cover Pseudomonas. January 12, 2021 during the night the patient had a episode of severe sharp chest pain pleuritic in nature with associated tachycardia and fever. Was contacted by nursing staff,CTA of the chest was ordered,and echocardiogram, An additional antihypertensive for hypertesion episodes. CT of the chest was negative for PE. Patient was transferred to the cardiac step unit for further monitoring of patient care. Upon rounding this a.m. patient resting comfortably in chair with oxygen saturation's greater than 92% and 2 L nasal cannula. Patient afebrile alert and oriented in following commands with no apparent acute signs of distress. Patient continues to endorse shortness of breath with exertion, generalized fatigue and chronic back pain. Awaiting echocardiogram this a.m., and awaiting on consultation from cardiology pulmonary critical care and infectious disease for recommendations and treatment plan January 13, 2021 evaluated patient this a.m. resting comfortably in chair, patient has been afebrile, non-tachycardic, and decreased respiratory rate, and decrease dependence on oxygen to keep oxygen saturation's greater than 90%. Adjustments made by infectious disease to discontinue vancomycin continues Zosyn 3.375 g for pneumonia.Patient continues to endorse shortness of breath at rest and exertion. Objective - Vital Signs Vital signs: Vital Signs Temp 97.5 F L 01/13/21 19:27 Pulse 91 01/13/21 20:23 Resp 18 01/13/21 19:27 BP 148/66 01/13/21 19:27 Pulse Ox 93 L 01/13/21 20:13 Intake & Output 01/13/21 01/13/21 01/14/21 06:59 18:59 06:59 Intake Total 400 930 Balance 400 930 Weight 109.8 kg Intake: Intake, IV Titration 450 Amount Lactated Ringers 1,000 ml 450 @ 75 mls/hr IV .[id number] [facility] Rx#:[id number] Oral 400 480 Other: Voiding Method Toilet Toilet # Voids 1 1 1 - Constitutional General appearance: Present: mild distress - EENT Eyes: Present: EOMI, PERRLA, normal appearance ENT: Present: normal oropharynx Ears: bilateral: normal - Neck Neck: Present: normal ROM Carotids: bilateral: upstroke normal Thyroid: bilateral: normal size - Respiratory Respiratory: bilateral: CTA (Anterior lung conrad), diminished (Posterior lung conrad) - Cardiovascular Details: Normal sinus rhythm Heart rate: 75 Rhythm: regular Heart sounds: normal: S1, S2 - Peripheral pulses radial pulse Peripheral Pulses: bilateral: Normal dorsalis pedis Peripheral Pulses: bilateral: Normal - Gastrointestinal General gastrointestinal: Present: normal bowel sounds - Integumentary Integumentary: Present: normal turgor - Neurologic Neurologic: Present: CNII-XII intact - Musculoskeletal Musculoskeletal: Present: generalized weakness - Psychiatric Psychiatric: Present: A&O x's 3, appropriate affect, intact judgment & insight - Allied health notes Allied health notes reviewed: nursing - Labs CBC & Chem 7: 01/13/21 08:12 01/13/21 08:12 Labs: Abnormal Lab Results - Last 24 Hours (Table) 01/11/21 01/13/21 01/13/21 Range/Units 04:26 06:26 08:12 WBC 26.2 H (3.8-10.6) k/uL RBC 4.00 L (4.30-5.90) m/uL Hgb 12.1 L (13.0-17.5) gm/dL Hct 37.4 L (39.0-53.0) % Plt Count 481 H (150-450) k/uL Neutrophils # 24.1 H (1.3-7.7) k/uL Creatinine (0.66-1.25) mg/dL Glucose (74-99) mg/dL POC Glucose (mg/dL) 235 H (75-99) mg/dL Total Protein (6.3-8.2) g/dL Albumin (3.5-5.0) g/dL Mycoplasma pneumon IgG 1.45 H (<=0.90) INDEX 01/13/21 01/13/21 01/13/21 Range/Units 08:12 11:44 16:52 WBC (3.8-10.6) k/uL RBC (4.30-5.90) m/uL Hgb (13.0-17.5) gm/dL Hct (39.0-53.0) % Plt Count (150-450) k/uL Neutrophils # (1.3-7.7) k/uL Creatinine 0.63 L (0.66-1.25) mg/dL Glucose 210 H (74-99) mg/dL POC Glucose (mg/dL) 162 H 351 H (75-99) mg/dL Total Protein 6.1 L (6.3-8.2) g/dL Albumin 3.0 L (3.5-5.0) g/dL Mycoplasma pneumon IgG (<=0.90) INDEX 01/13/21 01/13/21 01/13/21 Range/Units 17:30 19:56 21:00 WBC (3.8-10.6) k/uL RBC (4.30-5.90) m/uL Hgb (13.0-17.5) gm/dL Hct (39.0-53.0) % Plt Count (150-450) k/uL Neutrophils # (1.3-7.7) k/uL Creatinine (0.66-1.25) mg/dL Glucose (74-99) mg/dL POC Glucose (mg/dL) 312 H 356 H 296 H (75-99) mg/dL Total Protein (6.3-8.2) g/dL Albumin (3.5-5.0) g/dL Mycoplasma pneumon IgG (<=0.90) INDEX Microbiology - Last 24 Hours (Table) 01/10/21 11:17 Blood Culture - Preliminary Blood No Growth after 72 hours 01/10/21 11:17 Blood Culture - Preliminary Blood No Growth after 72 hours 01/12/21 14:17 Gram Stain - Preliminary Sputum Sputum Culture - Preliminary - Imaging and Cardiology Chest x-ray: pending Assessment and Plan Assessment: Pneumonia COPD leukocytosis continue to trend peripheral artery disease chronic back pain with multiple fusions mixed anxiety and depression hyperlipidemia full code Plan: Pneumonia continue IV antibiotics COPD-breathong treatments around the clock, IV STEROIDS leukocytosis continue to trend Hypertension, additional anti-hypertensive chronic back pain continue analgesics as needed fever continue antipyretic's continue medical management continue to monitor vital signs and diagnostic testing further recommendations to come based on patient's clinical condition Hopeful discharge within 48 hours Time with Patient: Greater than 30
[2021-01-14 01:06] LABS: Glucose,Whole Blood 292 mg/dL (75-99)
[2021-01-14] MEDS: PIPERACILLIN-TAZOBACTAM 3.375 GM in SODIUM CHLORIDE 0.9% 100 ML IVPB SCH ×3 (04:59→21:05)
[2021-01-14] MEDS: LACTATED RINGERS 1,000 ML IV SCH ×2 (04:59→17:02)
[2021-01-14 06:11] LABS: Glucose,Whole Blood 184 mg/dL (75-99)
[2021-01-14] MEDS: methylPREDNISolone SOD SUCCI 125 MG/2 ML VIAL IV SCH ×3 (06:23→17:00)
[2021-01-14] MEDS: INSULIN ASPART (NovoLOG) 100 UNIT/ML VIAL SQ SCH ×4 (06:23→21:06)
[2021-01-14] MEDS: IPRATROPIUM-ALBUTEROL 3 ML NEB INHALATION SCH ×4 (07:38→19:36)
[2021-01-14 08:43] LABS: ALT 51 U/L (4-49); AST 49 U/L (17-59); African American GFR (CKD) >90 (>60 ml/min/1.73 sqM); Alkaline Phosphatase 105 U/L (38-126); Anion Gap 11 mmol/L; Blood Urea Nitrogen 16 mg/dL (9-20); Carbon Dioxide 27 mmol/L (22-30); Chloride 107 mmol/L (98-107); Glucose 163 mg/dL (74-99); Non-African American GFR(CKD) >90 (>60 ml/min/1.73 sqM); Potassium 4.6 mmol/L (3.5-5.1); Sodium 145 mmol/L (137-145); Total Bilirubin 0.2 mg/dL (0.2-1.3)
[2021-01-14 08:49] LABS: HCT 38.6 % (39.0-53.0); Hypochromasia Slight; MCH 29.4 pg (25.0-35.0); MCHC 31.1 g/dL (31.0-37.0); MCV 94.3 fL (80.0-100.0); Mean Platelet Volume 7.6; Platelet Count 507 k/uL (150-450); RBC 4.09 m/uL (4.30-5.90); WBC 34.6 k/uL (3.8-10.6)
[2021-01-14] MEDS: PREGABALIN 75 MG CAP PO SCH ×2 (08:49→21:05)
[2021-01-14] MEDS: oxyCODONE-APAP 10-325MG 1 EACH TAB PO SCH ×4 (08:49→22:02)
[2021-01-14] MEDS: ASPIRIN 81 MG PO SCH (08:50)
[2021-01-14] MEDS: CLOPIDOGREL 75 MG TAB PO SCH (08:50)
[2021-01-14] MEDS: MULTIVITAMINS, THERA 1 EACH TAB PO SCH (08:50)
[2021-01-14] MEDS: FLUoxetine HCL 20 MG CAP PO SCH (08:50)
[2021-01-14] MEDS: LOSARTAN 50 MG TAB PO SCH (08:50)
[2021-01-14 09:13] LABS: Lymphocytes # (M) 2.08 k/uL (1.0-4.8); Monocytes # (M) 0.69 k/uL (0-1.0); Neutrophils # (M) 32.18 k/uL (1.3-7.7); Neutrophils % (M) 93 %; Nucleated Red Blood Cells 0 /100 WBC (0-0); Total Cells Counted 200
--- NOTE | 2021-01-14 09:26 | XR ---
EXAMINATION TYPE: XR chest 2V DATE OF EXAM: 01/14/2021 COMPARISON: Chest x-ray from yesterday. CTA chest 3 days ago. HISTORY: Pneumonia progress study. TECHNIQUE: Frontal and lateral views of the chest are obtained. FINDINGS: There is persistent [id number] left pleural effusion and associated left lingular a nd lower lobe opacity. Background chronic emphysematous change. The cardiac silhouette size is stabl e and within normal limits with atherosclerotic change aortic knob. Surgical change cervical spine re demonstrated. IMPRESSION: Chronic emphysematous change with persistent left lower lobe pneumonic consolidation and suspected small to moderate left pleural effusion. There is lingular involvement or infiltrate suspe cted on the lateral view.
--- NOTE | 2021-01-14 11:46 | P.PN ---
Subjective Progress Note Date: 01/14/21 65-year-old male patient, coming in for a left lower lobe pneumonia. The patient has severe peripheral vascular disease. He was seen by vascular surgeon he was supposed to undergo vascular intervention and he was found to be febrile and he was discharged to be followed up by his primary care physician. Obviously there was a concern for fever and infection and he was discharged home. The patient did not notice that he was having fever. Upon further check, he had a temperature of 102 and he came into the emergency department and the chest x-ray was done that showed a left lower lobe consolidation. CAT scan of the chest was also done and this confirmed the presence of an extensive left lower lobe consolidation along with a small left-sided pleural effusion. There was also some reactive lymphadenopathy in the subcarinal area. There was a calcified granuloma in the left upper lobe also. No evidence of any pulmonary embolism. The patient was started on a combination of antibiotics including Zosyn and vancomycin. Legionella urine antigen was negative. He was placed on oxygen and currently is on 2 L of oxygen by nasal cannula with a pulse ox of 94%. Earlier he was on 5 L. Currently is afebrile. Blood culture has been sent and the results are still pending for now. He has a congested cough. He did have some hemoptysis 2 days back. No pleurisy. No history of any DVT or pulmonary embolism. White cell count is at 15.4. Smoke up to 2 packs of cigarettes a day and currently he states that he's quit smoking approximately a week ago. No oxygen. No maintenance as for medications On 01/13/2001 patient seen in follow-up on [facility] care unit, he is up in the chair, he is on 2 L oxygen pulse ox is 92%, he's been afebrile, hemodynamically stable, he states his cough has improved, overall he is feeling better, and his chest discomfort has also improved. No hemoptysis, today's follow-up chest x- ray shows increasing left moderate left pleural effusion, and adjacent com pressive atelectasis. Patient remains on Zosyn. He's had no fever or chills. Today's labs have been reviewed, white blood cell count was 26.2, hemoglobin is 12.1, electrolytes and renal profile were within normal limits. His follow-up pro-calcit 01/14/2021, the patient is doing well. Feels less short of breath. Nevertheless, the white cell count is on the rise. A repeat chest x-ray was do ne today and showed COPD with persistent left lower lobe consolidation and a suspected small to moderate-sized left-sided pleural effusion. There is also limited involvement and this is suspected on the lateral views. The patient remains on antibiotics. The patient remains on a combination of Zosyn and breathing treatments around the clock and the patient is also on IV Solu-Medrol. The white cell count rise is of a concern. His CBC shows a white cell count of 34. Rest of the electrodes are all within normal limits. Cultures of been negative. Objective - Vital Signs Vital signs: Vital Signs Temp 97.8 F 01/14/21 08:48 Pulse 79 01/14/21 11:35 Resp 18 01/14/21 08:48 BP 157/67 01/14/21 08:48 Pulse Ox 88 L 01/14/21 08:48 Intake & Output 01/13/21 01/14/21 01/14/21 18:59 06:59 18:59 Intake Total 930 240 Balance 930 240 Weight 111.9 kg Intake: Intake, IV Titration 450 Amount Lactated Ringers 1,000 ml 450 @ 75 mls/hr IV .[id number] [facility] Rx#:[id number] Oral 480 240 Other: Voiding Method Toilet # Voids 1 1 - Exam GENERAL EXAM: Alert, very pleasant, 65-year-old white male on room air oxygen 88% 2 L oxygen 97% HEAD: Normocephalic/atraumatic. EYES: Normal reaction of pupils, equal size. Conjunctiva pink, sclera white. NOSE: Clear with pink turbinates. THROAT: No erythema or exudates. NECK: No masses, no JVD, no thyroid enlargement, no adenopathy. CHEST: No chest wall deformity. Symmetrical expansion. LUNGS: Equal air entry with diminished breath sounds at the bases CVS: Regular rate and rhythm, normal S1 and S2, no gallops, no murmurs, no rubs ABDOMEN: Soft, nontender. No hepatosplenomegaly, normal bowel sounds, no guarding or rigidity. EXTREMITIES: No clubbing, no edema, no cyanosis, 2+ pulses and upper and lower extremities. MUSCULOSKELETAL: Muscle strength and tone normal. SPINE: No scoliosis or deformity SKIN: No rashes CENTRAL NERVOUS SYSTEM: Alert and oriented -3. No focal deficits, tone is normal in all 4 extremities. PSYCHIATRIC: Alert and oriented -3. Appropriate affect. Intact judgment and insight. - Labs CBC & Chem 7: 01/14/21 07:57 01/14/21 07:57 Labs: Abnormal Lab Results - Last 24 Hours (Table) 01/13/21 01/13/21 01/13/21 Range/Units 11:44 16:52 17:30 WBC (3.8-10.6) k/uL RBC (4.30-5.90) m/uL Hgb (13.0-17.5) gm/dL Hct (39.0-53.0) % Plt Count (150-450) k/uL Neutrophils # (Manual) (1.3-7.7) k/uL Creatinine (0.66-1.25) mg/dL Glucose (74-99) mg/dL POC Glucose (mg/dL) 162 H 351 H 312 H (75-99) mg/dL ALT (4-49) U/L Total Protein (6.3-8.2) g/dL Albumin (3.5-5.0) g/dL 01/13/21 01/13/21 01/14/21 Range/Units 19:56 21:00 01:04 WBC (3.8-10.6) k/uL RBC (4.30-5.90) m/uL Hgb (13.0-17.5) gm/dL Hct (39.0-53.0) % Plt Count (150-450) k/uL Neutrophils # (Manual) (1.3-7.7) k/uL Creatinine (0.66-1.25) mg/dL Glucose (74-99) mg/dL POC Glucose (mg/dL) 356 H 296 H 292 H (75-99) mg/dL ALT (4-49) U/L Total Protein (6.3-8.2) g/dL Albumin (3.5-5.0) g/dL 01/14/21 01/14/21 01/14/21 Range/Units 06:10 07:57 07:57 WBC 34.6 H (3.8-10.6) k/uL RBC 4.09 L (4.30-5.90) m/uL Hgb 12.0 L (13.0-17.5) gm/dL Hct 38.6 L (39.0-53.0) % Plt Count 507 H (150-450) k/uL Neutrophils # (Manual) 32.18 H (1.3-7.7) k/uL Creatinine 0.63 L (0.66-1.25) mg/dL Glucose 163 H (74-99) mg/dL POC Glucose (mg/dL) 184 H (75-99) mg/dL ALT 51 H (4-49) U/L Total Protein 6.0 L (6.3-8.2) g/dL Albumin 3.0 L (3.5-5.0) g/dL Microbiology - Last 24 Hours (Table) 01/12/21 14:17 Gram Stain - Final Sputum Sputum Culture - Final 01/10/21 11:17 Blood Culture - Preliminary Blood No Growth after 72 hours 01/10/21 11:17 Blood Culture - Preliminary Blood No Growth after 72 hours Assessment and Plan Plan: 1 left lower lobe consolidation/effusion along with some mediastinal lymphadenopathy. The clinical picture is consistent with pneumonia especially the patient was running a fever and has a mild degree of leukocytosis. Nevertheless, malignancy cannot be completely excluded. We'll treat this patient for pneumonia at this point, a combination of antibiotics and the patient is currently on accommodation Zosyn and vancomycin. procalc level was at 0.16. Cultures of been sent. COVID-19 testing is been negative. 2 chronic smoker 3 possible COPD 4 PVOD , symptomatic 5 hyperlipidemia 6 leukocytosis 7 acute hypoxic respiratory failure, improving, room air pulse ox is 88%, currently on 2 L Plan Continue current treatment for now with accommodation Zosyn ultrasound of the left chest for markings and will drain any parapneumonic effusion if sizable repeat chest x-ray in the morning repeat pro-calcitonin level is at 0.1, slightly lower monitor the progression of the left lower lobe consolidation and effusion Repeat CBC and white count in a.m. We'll keep in the hospital for another 24 hours and we'll decide on thoracentesis within the next 24 hours
[2021-01-14 12:04] LABS: Glucose,Whole Blood 323 mg/dL (75-99)
--- NOTE | 2021-01-14 12:06 | US ---
EXAMINATION TYPE: US chest DATE OF EXAM: 01/14/2021 COMPARISON: Chest x-ray earlier today CLINICAL HISTORY: Left pleural effusion. Abnormal x-ray. Exam done portable. TECHNIQUE: Targeted ultrasound of the posterior lower left hemithorax EXAM MEASUREMENTS: Left Pleural Effusion pocket size: 7.9 cm Left skin surface to fluid distance: 2.9 cm Lung seen within fluid pocket at a depth of 4.9cm Left side marked for possible thoracentesis outside the dept. Pulmonologists are able to review the images in the patient?s EMR. Small to borderline moderate size left pleural effusion is identified on images saved which correlate s with same day x-ray. IMPRESSIONS: As above.
[2021-01-14 16:50] LABS: Glucose,Whole Blood 296 mg/dL (75-99)
[2021-01-14 20:32] LABS: Glucose,Whole Blood 295 mg/dL (75-99)
[2021-01-14] MEDS: METOPROLOL TARTRATE 12.5 MG TAB PO SCH (21:04)
[2021-01-14] MEDS: ATORVASTATIN 10 MG TAB PO SCH (21:04)
[2021-01-14] MEDS: ALPRAZolam 1 MG TAB PO SCH (21:05)
[2021-01-14] MEDS ORDERED: INSULIN DETEMIR (LEVEMIR) 100 UNIT/ML SYR SQ SCH (22:15)
[2021-01-14] MEDS: predniSONE 10 MG TAB PO SCH (23:26)
[2021-01-15 01:25] LABS: Glucose,Whole Blood 182 mg/dL (75-99)
[2021-01-15] MEDS: PIPERACILLIN-TAZOBACTAM 3.375 GM in SODIUM CHLORIDE 0.9% 100 ML IVPB SCH ×2 (03:57→11:01)
--- NOTE | 2021-01-15 04:10 | PN ---
PROGRESS NOTE DATE OF SERVICE: 01/14/2021 I am covering for Dr. العلي. This 65-year-old gentleman admitted with significant pneumonia is being closely monitored at this time. The patient also had a pleural effusion. The patient is receiving broad-spectrum IV antibiotics. Dr. Butler is following the patient closely. A chest ultrasound was recommended today which showed left pleural effusion about 7.9 cm. Most recent chest x-ray was reviewed personally by me and showed significant evidence of left pleural effusion and some pneumonic process also. PAST MEDICAL HISTORY: Reviewed. REVIEW OF SYSTEMS: CARDIOVASCULAR No angina or palpitations. RESPIRATORY As mentioned earlier. GI No nausea, vomiting, or diarrhea. No dysuria or hematuria. NERVOUS No numbness or weakness. CURRENT MEDICATIONS: Reviewed include DuoNeb, Xanax, aspirin, Lipitor, Plavix, Proscar. Doses reviewed. PHYSICAL EXAMINATION: Patient is alert, oriented x3. Pulse is 100, blood pressure 174/61, respiration 18, temperature 97.9, pulse ox 98% on room air. HEENT: Conjunctivae normal. Oral mucosa moist. NECK: No jugular venous distention. No lymph node enlargement. CARDIOVASCULAR: S1, S2, muffled. No S3, no S4, RESPIRATORY: Diminished breath sounds at the bases. A few scattered rhonchi and crackles. ABDOMEN: Soft, nontender. LEGS: No edema, no swelling. NERVOUS SYSTEM: No focal deficits. LABS: WBC ( ), hemoglobin is 12. Accu-Cheks 323, 296 and 295. ASSESSMENT: 1. Acute left lower lobe pneumonia, possibly community-acquired pneumonia with parapneumonic effusion about 7.7 cm fluid pocket. 2. Chronic obstructive pulmonary disease acute exacerbation. 3. Leukocytosis. 4. History of peripheral arterial disease. 5. Chronic back pain. 6. History of anxiety, depression. 7. Hyperlipidemia. 8. 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 9. History of sleep apnea. 10.History of appendectomy. 11.Increased WBC and leukemoid reaction. 12.Anemia. 13.Thrombocytosis. RECOMMENDATION: In this 65-year-old gentleman who presented with multiple complex medical issues, we will monitor the patient closely, continue the current management and symptomatic treatment. Otherwise, at this time I would recommend to cut down the dose of the steroids. I would also recommend starting Lantus insulin today and continue the antibiotics. Prognosis guarded. Possible thoracocentesis by Dr. Butler. Further recommendation to follow. MMODL / IJN: [id number] /
[2021-01-15 06:21] LABS: Glucose,Whole Blood 152 mg/dL (75-99)
[2021-01-15] MEDS: INSULIN ASPART (NovoLOG) 100 UNIT/ML VIAL SQ SCH ×2 (06:25→12:09)
[2021-01-15] MEDS: LACTATED RINGERS 1,000 ML IV SCH (07:19)
--- NOTE | 2021-01-15 07:40 | XR ---
EXAMINATION TYPE: XR chest 2V DATE OF EXAM: 01/15/2021 COMPARISON: Chest x-ray from yesterday HISTORY: Pneumonia. TECHNIQUE: Frontal and lateral views of the chest are obtained. FINDINGS: There is persistent eptdw-ld-[id number] size left pleural effusion and associated left lingu lar and lower lobe opacity. Background chronic emphysematous change. The cardiac silhouette size is stable and upper limits of normal with atherosclerotic change aortic knob. Surgical change cervical s pine redemonstrated. IMPRESSION: Chronic emphysematous change with persistent left lower lobe pneumonic consolidation and suspected small to moderate sized left pleural effusion. There is lingular involvement or infiltrate redemonstrated on the lateral view. No significant change from one day earlier.
--- NOTE | 2021-01-15 08:17 | PN ---
PROGRESS NOTE DATE OF SERVICE: 01/14/2021 REASON FOR FOLLOWUP: Left-sided pneumonia and parapneumonic effusion. INTERVAL HISTORY: The patient is afebrile. The patient is breathing comfortably on room air. The patient denies having any chest pain or shortness of breath. The patient did have a cough and is bringing up sputum. No hemoptysis. No vomiting. No abdominal pain. No diarrhea. PHYSICAL EXAMINATION: Blood pressure is 173/65 with a pulse of 101, temperature is 97.9. He is 92% on room air. General description is a middle-aged male up in the chair in no distress. Respiratory system: Unlabored breathing, decreased breath sounds at the bases, no wheezes. Heart S1, S2. Regular rate and rhythm. Abdomen is soft, no tenderness. LABS: Hemoglobin is 12 with white count 4.6, BUN of 16, creatinine 0.63. DIAGNOSTIC IMPRESSION AND PLAN: Patient with left-sided pneumonia with parapneumonic effusion. Ultrasound has been done and area has been marked for possible thoracocentesis. Patient is covered with Zosyn. Cultures have been negative so far and continue supportive care. MMODL / IJN: [id number] /
[2021-01-15 08:28] LABS: Basophils % (A) 0 %; Eosinophils % (A) 0 %; HCT 36.5 % (39.0-53.0); Lymphocytes # (A) 1.6 k/uL (1.0-4.8); Lymphocytes % (A) 7 %; MCH 30.7 pg (25.0-35.0); MCHC 32.9 g/dL (31.0-37.0); MCV 93.3 fL (80.0-100.0); Mean Platelet Volume 7.4; Monocytes # (A) 0.8 k/uL (0-1.0); Monocytes % (A) 3 %; Neutrophils # (A) 22.1 k/uL (1.3-7.7); Neutrophils % (A) 89 %; Platelet Count 545 k/uL (150-450); RBC 3.91 m/uL (4.30-5.90); RDW 12.8 % (11.5-15.5); WBC 24.8 k/uL (3.8-10.6)
[2021-01-15] MEDS: oxyCODONE-APAP 10-325MG 1 EACH TAB PO SCH ×2 (08:28→12:09)
[2021-01-15] MEDS: PREGABALIN 75 MG CAP PO SCH (08:28)
[2021-01-15] MEDS: CLOPIDOGREL 75 MG TAB PO SCH (08:29)
[2021-01-15] MEDS: MULTIVITAMINS, THERA 1 EACH TAB PO SCH (08:29)
[2021-01-15] MEDS: ASPIRIN 81 MG PO SCH (08:29)
[2021-01-15] MEDS: LOSARTAN 50 MG TAB PO SCH (08:29)
[2021-01-15] MEDS: predniSONE 10 MG TAB PO SCH (08:29)
[2021-01-15] MEDS: FLUoxetine HCL 20 MG CAP PO SCH (08:29)
[2021-01-15] MEDS: IPRATROPIUM-ALBUTEROL 3 ML NEB INHALATION SCH ×2 (08:34→11:17)
[2021-01-15 09:03] LABS: African American GFR (CKD) >90 (>60 ml/min/1.73 sqM); Anion Gap 9 mmol/L; Blood Urea Nitrogen 17 mg/dL (9-20); Carbon Dioxide 29 mmol/L (22-30); Chloride 105 mmol/L (98-107); Glucose 125 mg/dL (74-99); Non-African American GFR(CKD) >90 (>60 ml/min/1.73 sqM); Potassium 4.7 mmol/L (3.5-5.1); Sodium 143 mmol/L (137-145)
--- NOTE | 2021-01-15 10:28 | P.PCN ---
Date of Procedure: 01/15/21 Preoperative Diagnosis: left sided pleural effusion Postoperative Diagnosis: same Procedure(s) Performed: left sided thoracentesis Anesthesia: local Surgeon: Jose Rafael Butler Estimated Blood Loss (ml): 0 Pathology: other Condition: stable Disposition: floor Operative Findings: A time out was performed and the chest x-ray was reviewed, the appropriate side was confirmed and marked. My hands were washed immediately prior to the procedure. I wore a surgical cap, mask with protective eyewear, sterile gown and sterile gloves throughout the procedure. The patient was prepped and draped in a sterile manner using chlorhexidine scrub after the appropriate level was percussed and confirmed by ultrasound. 1% lidocaine was used to anesthesize the skin, subcutaneous tissue, superior aspect of the rib periosteum and parietal pleura. A finder needle was then introduced over the superior aspect of the rib to locate the pleural fluid; 2colored fluid was aspirated at a depth of approximately 2 cm. A 10-blade scalpel was used to wilfredo the skin at the insertion site. The Jisc-x-Liecscxf needle was then introduced through the skin incision into the pleural space using negative aspiration pressure and the red colometric indicator to confirm appropriate positioning of the needle. The thoracentesis catheter was then threaded without difficulty. 400 ml of turbid colored fluid was removed without difficulty. The catheter was then removed. No immediate complications were noted during the procedure. A post-procedure chest x-ray is pending at the time of this note. The fluid will be sent for studies. Estimated blood loss is 0cc
--- NOTE | 2021-01-15 10:39 | P.PN ---
Subjective Progress Note Date: 01/15/21 65-year-old male patient, coming in for a left lower lobe pneumonia. The patient has severe peripheral vascular disease. He was seen by vascular surgeon he was supposed to undergo vascular intervention and he was found to be febrile and he was discharged to be followed up by his primary care physician. Obviously there was a concern for fever and infection and he was discharged home. The patient did not notice that he was having fever. Upon further check, he had a temperature of 102 and he came into the emergency department and the chest x-ray was done that showed a left lower lobe consolidation. CAT scan of the chest was also done and this confirmed the presence of an extensive left lower lobe consolidation along with a small left-sided pleural effusion. There was also some reactive lymphadenopathy in the subcarinal area. There was a calcified granuloma in the left upper lobe also. No evidence of any pulmonary embolism. The patient was started on a combination of antibiotics including Zosyn and vancomycin. Legionella urine antigen was negative. He was placed on oxygen and currently is on 2 L of oxygen by nasal cannula with a pulse ox of 94%. Earlier he was on 5 L. Currently is afebrile. Blood culture has been sent and the results are still pending for now. He has a congested cough. He did have some hemoptysis 2 days back. No pleurisy. No history of any DVT or pulmonary embolism. White cell count is at 15.4. Smoke up to 2 packs of cigarettes a day and currently he states that he's quit smoking approximately a week ago. No oxygen. No maintenance as for medications On 01/13/2001 patient seen in follow-up on [facility] care unit, he is up in the chair, he is on 2 L oxygen pulse ox is 92%, he's been afebrile, hemodynamically stable, he states his cough has improved, overall he is feeling better, and his chest discomfort has also improved. No hemoptysis, today's follow-up chest x- ray shows increasing left moderate left pleural effusion, and adjacent comp ressive atelectasis. Patient remains on Zosyn. He's had no fever or chills. Today's labs have been reviewed, white blood cell count was 26.2, hemoglobin is 12.1, electrolytes and renal profile were within normal limits. His follow-up pro-calcit 01/14/2021, the patient is doing well. Feels less short of breath. Nevertheless, the white cell count is on the rise. A repeat chest x-ray was don e today and showed COPD with persistent left lower lobe consolidation and a suspected small to moderate-sized left-sided pleural effusion. There is also limited involvement and this is suspected on the lateral views. The patient remains on antibiotics. The patient remains on a combination of Zosyn and breathing treatments around the clock and the patient is also on IV Solu-Medrol. The white cell count rise is of a concern. His CBC shows a white cell count of 34. Rest of the electrodes are all within normal limits. Cultures of been negative. The patient is seen today 01/15/2021 in follow-up on the selective care unit. He is currently sitting up in a chair at the bedside. Awake and alert in no acute distress. Breathing has improved daily. No fever, no chills or night sweats. Maintaining good O2 saturation in the 90s on room air. Ultrasound of the left chest did reveal a 7.[address] Butler did perform a thoracentesis with 400 mL of cloudy yellow fluid removed. Blood cultures reveal no growth. Sputum culture reveals no growth. White count 24.8. Hemoglobin 12.0. Sodium 143. Potassium 4.7. Creatinine 0.67. Remains on Zosyn. Objective - Vital Signs Vital signs: Vital Signs Temp 98.7 F 01/15/21 08:24 Pulse 91 01/15/21 08:24 Resp 16 01/15/21 08:24 BP 171/69 01/15/21 08:24 Pulse Ox 94 L 01/15/21 08:24 Intake & Output 01/14/21 01/15/21 01/15/21 18:59 06:59 18:59 Intake Total 1560 Balance 1560 Intake: Oral 1560 Other: # Voids 1 2 # Bowel Movements 1 - Exam GENERAL EXAM: Alert, active, pleasant 65-year-old gentleman, on room air, comfortable in no apparent distress. HEAD: Normocephalic. EYES: Normal reaction of pupils, equal size. NOSE: Clear with pink turbinates. THROAT: No erythema or exudates. NECK: No masses, no JVD. CHEST: No chest wall deformity. LUNGS: Equal air entry with some the left lung base, diminished. CVS: S1 and S2 normal with no audible murmur, regular rhythm. ABDOMEN: No hepatosplenomegaly, normal bowel sounds, no guarding or rigidity. SPINE: No scoliosis or deformity SKIN: No rashes CENTRAL NERVOUS SYSTEM: No focal deficits, tone is normal in all 4 extremities. EXTREMITIES: There is no peripheral edema. No clubbing, no cyanosis. Peripheral pulses are intact. - Labs CBC & Chem 7: 01/15/21 07:37 01/15/21 07:37 Labs: Abnormal Lab Results - Last 24 Hours (Table) 01/14/21 01/14/21 01/14/21 Range/Units 12:01 16:48 20:31 WBC (3.8-10.6) k/uL RBC (4.30-5.90) m/uL Hgb (13.0-17.5) gm/dL Hct (39.0-53.0) % Plt Count (150-450) k/uL Neutrophils # (1.3-7.7) k/uL Glucose (74-99) mg/dL POC Glucose (mg/dL) 323 H 296 H 295 H (75-99) mg/dL 01/15/21 01/15/21 01/15/21 Range/Units 01:23 06:20 07:37 WBC 24.8 H (3.8-10.6) k/uL RBC 3.91 L (4.30-5.90) m/uL Hgb 12.0 L (13.0-17.5) gm/dL Hct 36.5 L (39.0-53.0) % Plt Count 545 H (150-450) k/uL Neutrophils # 22.1 H (1.3-7.7) k/uL Glucose (74-99) mg/dL POC Glucose (mg/dL) 182 H 152 H (75-99) mg/dL 01/15/21 Range/Units 07:37 WBC (3.8-10.6) k/uL RBC (4.30-5.90) m/uL Hgb (13.0-17.5) gm/dL Hct (39.0-53.0) % Plt Count (150-450) k/uL Neutrophils # (1.3-7.7) k/uL Glucose 125 H (74-99) mg/dL POC Glucose (mg/dL) (75-99) mg/dL Microbiology - Last 24 Hours (Table) 01/10/21 11:17 Blood Culture - Preliminary Blood No Growth after 96 hours 01/10/21 11:17 Blood Culture - Preliminary Blood No Growth after 96 hours 01/12/21 14:17 Gram Stain - Final Sputum Sputum Culture - Final Assessment and Plan Assessment: 1 left lower lobe consolidation/effusion along with some mediastinal lymphadenopathy. The clinical picture is consistent with pneumonia especially the patient was running a fever and has a mild degree of leukocytosis. Nevertheless, malignancy cannot be completely excluded. We'll treat this patient for pneumonia at this point, a combination of antibiotics and the patient is currently on accommodation Zosyn and vancomycin. procalc level was at 0.16. Cultures of been sent. COVID-19 testing is been negative. Left-sided thoracentesis performed today with 400 mL of cloudy yellow fluid removed. Fluid analysis and pathology pending 2 chronic smoker 3 possible COPD 4 PVOD , symptomatic 5 hyperlipidemia 6 leukocytosis 7 acute hypoxic respiratory failure, improved, currently on room air Plan: The patient was seen and evaluated by Dr. Butler Left-sided thoracentesis performed with 400 mL cloudy yellow fluid removed Follow up chest xray reveals no pneumothorax Fluid analysis and pathology pending He is cleared for discharge from the pulmonary standpoint Complete a course of antibiotics in the form of Augmentin Follow-up in the office in 1-2 weeks' I, the cosigning physician, performed a history & physical examination of the patient. Lungs sounds crackles, diminished in the left lung base. Maintaining good O2 saturations in the 90s on room air. I discussed the assessment and plan of care with my nurse practitioner, Akua Nunez. I attest to the above note as dictated by her.
--- NOTE | 2021-01-15 11:02 | XR ---
EXAMINATION TYPE: XR chest 1V DATE OF EXAM: 01/15/2021 CLINICAL HISTORY: Status post left-sided thoracentesis. TECHNIQUE: Single AP portable frontal view of the chest is obtained. COMPARISON: Chest x-ray from earlier today FINDINGS: Persistent left basilar opacity. No pneumothorax after left-sided thoracentesis. Right lung remains clear. Cardiac silhouette size is stable and upper limits of normal. Surgical change of the cervical spine partially imaged. IMPRESSION: No pneumothorax after left sided thoracentesis. Persistent left basilar opacity consisten t with acute infiltrate and/or atelectasis. Probable residual small left pleural effusion.
[2021-01-15 11:39] VITALS: BP 160/62; PULSE 70; RESP 16; TEMP 98
[2021-01-15 11:57] LABS: Glucose,Whole Blood 164 mg/dL (75-99)
[2021-01-15 12:29] LABS: Appearance,BF Cloudy; Color,BF Yellow; Nucleated Cells, Body Fluid 775 /uL; RBC, Body Fluid 3710 /uL
[2021-01-15 12:34] LABS: Mononuclear WBC,Body Fluid 18 %; Polynuclear WBC,Body Fluid 82 %; Total Cells Counted,Body Fluid 100
[2021-01-15] MEDS ORDERED: methylPREDNISolone ACETATE 80 MG/ML 1 ML VIAL IM STA (13:28)
--- NOTE | 2021-01-16 06:29 | DS ---
DISCHARGE SUMMARY DATE OF SERVICE: 01/15/2021 FINAL DIAGNOSIS: 1. Acute left lower pneumonia, possibly community-acquired, with parapneumonic effusion status post thoracocentesis of 400 cc of pleural fluid. 2. Chronic obstructive pulmonary disease acute exacerbation. 3. Leukocytosis. 4. History of peripheral arterial disease. 5. Chronic back pain. 6. History of anxiety, depression. 7. Hyperlipidemia. 8. 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 9. History of sleep apnea. 10.History of appendectomy. 11.Increased WBC with leukemoid reaction. 12.Anemia. 13.Thrombocytosis. DISCHARGE DISPOSITION: The patient will be discharged home in stable condition with a guarded prognosis. Dr. Butler cleared the patient for discharge. Total time 35 minutes. HISTORY OF PRESENT ILLNESS: This 65-year-old gentleman with a past medical history of multiple medical problems being followed by Dr. Raghavendra العلي in the outpatient setting. He was admitted with features of acute left lower pneumonia. Patient treated with broad-spectrum IV antibiotics. Patient developed a parapneumonic effusion which was tapped by Dr. Butler. Final cultures are pending at this time. Patient is extremely keen on going home. The patient will be discharged in stable condition. Guarded prognosis. Patient also had high blood sugars, but after stopping IV steroids, the patient improved significantly. A dose of Depo-Medrol is recommended at this time. Chest x-ray improved significantly. Follow the pleural fluid reports with Dr. Butler in the outpatient setting. DISCHARGE INSTRUCTIONS: Diet is cardiac. Activity limited until followup. Follow up with Dr. العيل in 2-3 days. Follow up with Dr. Butler or Dr. Zuluaga as recommend. DISCHARGE MEDICATIONS ARE FOLLOWS: 1. Multivitamin one p.o. daily. 2. Chantix 1 mg p.o. b.i.d. 3. Ecotrin 81 mg daily. 4. Lipitor 10 mg q.h.s. 5. Lyrica 150 mg p.o. b.i.d. 6. Oxycodone 10 mg p.o. q.i.d. 7. Plavix 75 mg p.o. daily. 8. Prozac 20 mg p.o. daily. 9. Xanax 1 mg q.h.s. 10.Cozaar 50 mg p.o. daily. 11.DuoNeb q.i.d. and p.r.n. 12.Lopressor 12.5 mg daily. 13.Motrin 400 mg q.8 p.r.n. Once again the patient will be discharged in stable condition. Guarded prognosis. MMODL / IJN: [id number] /
== END 2021-01-15 14:49 | disposition home or self-care (01) | DRG 871 ==
LOC: EC 10:27 → 6NMEDSUR 13:23 → OBSVTOIN 01-11 13:02 → 3SCARD 01-11 22:40
PROVIDERS: ADMIT Family Medicine; ATTEND Family Medicine
PROC: 0W9B3ZZ Drainage of Left Pleural Cavity, Percutaneous Approach (ICD-10-PCS; principal; 2021-01-15)
DX: A41.9 Sepsis, unspecified organism (principal); J18.9 Pneumonia, unspecified organism; J96.01 Acute respiratory failure with hypoxia; J44.0 Chronic obstructive pulmonary disease with (acute) lower respiratory infection; J91.8 Pleural effusion in other conditions classified elsewhere; J44.1 Chronic obstructive pulmonary disease with (acute) exacerbation; Z79.82 Long term (current) use of aspirin; Z79.02 Long term (current) use of antithrombotics/antiplatelets; E78.5 Hyperlipidemia, unspecified; I73.9 Peripheral vascular disease, unspecified; G89.29 Other chronic pain; F41.8 Other specified anxiety disorders; F17.210 Nicotine dependence, cigarettes, uncomplicated; Z20.822 Contact with and (suspected) exposure to COVID-19; D64.9 Anemia, unspecified; E09.9 Drug or chemical induced diabetes mellitus without complications; T38.0X5A Adverse effect of glucocorticoids and synthetic analogues, initial encounter; Z86.14 Personal history of Methicillin resistant Staphylococcus aureus infection; I10 Essential (primary) hypertension; Z90.49 Acquired absence of other specified parts of digestive tract; Z79.899 Other long term (current) drug therapy; D72.823 Leukemoid reaction; G47.33 Obstructive sleep apnea (adult) (pediatric)
CPT/HCPCS: 36415; 71045; 71046; 71275; 76604; 80048; 80053; 81001; 83605; 83735; 84145; 84484; 85025; 85610; 85652; 85730; 86140; 86738; 87040; 87070; 87102; 87116; 87205; 87206; 87252; 87449; 87496; 87498; 87502; 87529; 87634; 87635; 87798; 88108; 88305; 89050; 93005; 93306; 94640; 94760; 96365; 96366; 96368; 99285

== ENCOUNTER → 2021-01-24 | Outpatient (CLI) | payer MEDICARE ==
--- NOTE | 2021-01-24 09:38 | XR ---
EXAMINATION TYPE: XR chest 2V DATE OF EXAM: 01/24/2021 COMPARISON: 01/15/2021 HISTORY: Shortness of breath TECHNIQUE: Frontal and lateral views of the chest are obtained. FINDINGS: Scattered senescent parenchymal changes noted. Hyperinflation compatible with COPD. Left lower lobe pleural effusion has increased in size and is moderate in size. A portion of the effu paulette may be loculated. Underlying infiltrate and/or atelectasis may be present. Heart size is stable. Mediastinal structures are stable and grossly unremarkable. No evidence for hilar prominence. Degenerative changes dorsal spine. IMPRESSION: 1. Left lower lobe pleural effusion has increased in size and is moderate in size. A portion of the e ffusion may be loculated. Underlying infiltrate and/or atelectasis may be present.
== END | disposition home or self-care (01) ==
LOC: RADXRMAIN 09:10
PROVIDERS: ATTEND Nurse Practitioner
DX: J90 Pleural effusion, not elsewhere classified (principal)
CPT/HCPCS: 71046

== ENCOUNTER → 2022-01-26 | Outpatient (CLI) | payer MEDICARE | END | disposition home or self-care (01) | LOC: LABWHC1 12:13 | DX: Z01.818 Encounter for other preprocedural examination (principal); I10 Essential (primary) hypertension | CPT/HCPCS: 36415; 93005 ==